=== PATIENT | male | born 1995 | race Caucasian/White ===

== ENCOUNTER 2016-06-10 17:50 | Inpatient (IN) | payer OTHER ==
[2016-06-10 20:41] VITALS: BMI 18.2
--- NOTE | 2016-06-10 21:17 | HP ---
COWS - Scale Resting Pulse: 0= [place] 80 or Below Sweatin= Chills/Flushing Restless Observation: 1= Difficult to Sit Still Pupil Size: 0= Normal to Room Light Bone or Joint Aches: 2= Severe Diffuse Aches Runny Nose/ Eye Tearin= Runny Nose/Eyes GI Upset > 30mins: 2= Nausea/Diarrhea Tremor Observation: 2= Slight Tremor Visible Yawning Observation: 1= 1-2x During Session Anxiety or Irritability: 2=Irritable/Anxious Goose Flesh Skin: 3=Piloerection COWS Score: 16 CIWA Score - CIWA Score Nausea/Vomitin-Mild Nausea/No Vomiting Muscle Tremors: 4-Moderate,w/Arms Extend Anxiety: 4-Mod. Anxious/Guarded Agitation: 1-Slight > Activity Paroxysmal Sweats: 1-Minimal Palms Moist Orientation: 3-Disoriented Date>2 days Tacttile Disturbances: 0-None Auditory Disturbances: 0-None Visual Disturbances: 0-None Headache: 2-Mild CIWA-Ar Total Score: 16 Admission [facility] - HPI Chief Complaint: WITHDRAWAL SX Allergies/Adverse Reactions: Allergies Allergy/AdvReac Type Severity Reaction Status Date / Time No Known Allergies Allergy Verified 06/10/16 21:20 History of Present Illness: 21 YEARS OLD MALE WITH LONG HISTORY OF OPIOID XANAX NICOTINE DEPENDENCE HAS HEPATITIS C AND DEPRESSION IS ADMITTED TO DETOX Exam Limitations: No Limitations - Ebola screening Have you traveled outside of the country in the last 21 days: No Have you had contact with anyone from an Ebola affected area: No Have you been sick,other than usual withdrawal symptoms: No Do you have a fever: No - Review of Systems Constitutional: Chills, Loss of Appetite, Changes in sleep, Unintentional Wgt. Loss, Unexplained wgt Loss EENT: reports: No Symptoms Reported Respiratory: reports: SOB with Exertion Cardiac: reports: No Symptoms Reported GI: reports: Diarrhea, Nausea, Poor Appetite, Poor Fluid Intake, Vomiting, Indigestion, Abdominal cramping : reports: No Symptoms Reported Musculoskeletal: reports: Back Pain, Joint Pain, Muscle Pain, Neck Pain Integumentary: reports: Change in Color Neuro: reports: Tremors Endocrine: reports: No Symptoms Reported Hematology: reports: No Symptoms Reported Psychiatric: reports: Judgement Intact, Depressed Other Systems: Reviewed and Negative Patient History - Patient Medical History Hx Anemia: No Hx Asthma: No Hx Chronic Obstructive Pulmonary Disease (COPD): No Hx Cancer: No Hx Cardiac Disorders: No Hx Congestive Heart Failure: No Hx Hypertension: No Hx Hypercholesterolemia: No Hx Pacemaker: No HX Cerebrovascular Accident: No Hx Seizures: No Hx Dementia: No Hx Diabetes: No Hx Gastrointestinal Disorders: No Hx Liver Disease: No Hx Genitourinary Disorders: No Hx Sexually Transmitted Disorders: No Hx Renal Disease (ESRD): No Hx Thyroid Disease: No Hx Human Immunodeficiency Virus (HIV): No Hx Hepatitis C: Yes Hx Depression: Yes Hx Suicide Attempt: No Hx Bipolar Disorder: No Hx Schizophrenia: No - Patient Surgical History Past Surgical History: No - PPD History Previous Implant?: Yes Documented Results: Negative w/o proof Implanted On Prior [facility] Admission?: No PPD to be Administered?: Yes - Smoking Cessation Smoking history: Current every day smoker Have you smoked in the past 12 months: Yes Aproximately how many cigarettes per day: 10 Cigars Per Day: 0 Hx Chewing Tobacco Use: No Initiated information on smoking cessation: Yes 'Breaking Loose' booklet given: 06/10/16 - Substance & Tx. History Hx Alcohol Use: No Hx Substance Use: Yes Substance Use Type: Opiates, Tranquilizers Hx Substance Use Treatment: Yes - Substances Abused Alprazolam (Xanax) Route: Oral Frequency: Daily Amount used: 10 MG Age of first use: 18 Date of Last Use: 06/08/16 Heroin Route: Injection Frequency: Daily Amount used: 10 BAGS Age of first use: 19 Date of Last Use: 06/09/16 Family Disease History - Family Disease History Family History: Unremarkable Admission Physical Exam S - Vital Signs Vital Signs: Vital Signs - 24 hr 06/10/16 20:38 Temperature 97.0 F L Pulse Rate 72 Respiratory 18 Rate Blood Pressure 118/83 - Physical General Appearance: Yes: Appropriately Dressed, Mild Distress, Thin, Tremorous, Irritable, Sweating, Anxious HEENTM: Yes: Hearing grossly Normal, Normal ENT Inspection, Normocephalic, Normal Voice Respiratory: Yes: Chest Non-Tender, Lungs Clear, Normal Breath Sounds, No Respiratory Distress, No Accessory Muscle Use Neck: Yes: Supple, Trachea in good position Breast: Yes: Breasts Symetrical Cardiology: Yes: Regular Rhythm, Regular Rate, S1, S2 Abdominal: Yes: Non Tender, Soft Genitourinary: Yes: Within Normal Limits Back: Yes: Normal Inspection Musculoskeletal: Yes: full range of Motion, Gait Steady, Back pain, Muscle Pain Extremities: Yes: Normal Range of Motion, Non-Tender, Tremors Neurological: Yes: Alert, Motor Strength 5/5, Normal Response, Depressed Affect Integumentary: Yes: Warm, Track Hassan Lymphatic: Yes: Within Normal Limits - Diagnostic (1) Sedative, hypnotic or anxiolytic dependence with withdrawal, uncomplicated Current Visit: Yes Status: Acute (2) Opioid dependence with withdrawal Current Visit: Yes Status: Acute (3) Nicotine dependence Current Visit: Yes Status: Acute Qualifiers: Nicotine product type: cigarettes Substance use status: in withdrawal Qualified Code(s): F17.213 - Nicotine dependence, cigarettes, with withdrawal (4) Hepatitis C antibody test positive Current Visit: Yes Status: Resolved (5) Weight loss Current Visit: Yes Status: Acute (6) GERD (gastroesophageal reflux disease) Current Visit: Yes Status: Chronic Qualifiers: Esophagitis presence: without esophagitis Qualified Code(s): K21.9 - Gastro-esophageal reflux disease without esophagitis (7) Vomiting and diarrhea Current Visit: Yes Status: Acute Comment: OPIOID WITHDRAWAL RELATED (8) Depression (emotion) Current Visit: Yes Status: Suspected Qualifiers: Depression Type: dysthymia Qualified Code(s): F34.1 - Dysthymic disorder Cleared for Admission [facility] - Detox or Rehab [facility] Level of Care: Medically Managed Detox Regimen/Protocol: Methadone/Valium S Breath Alcohol Content Breath Alcohol Content: 0 Urine Drug Screen - Control Is Test Valid: Yes - Results Drug Screen Negative: No Urine Drug Screen Results: OPI-Opiates, BZO-Benzodiazepines
[2016-06-10] MEDS ORDERED: MAG HYDROX/AL HYDROX/SIMETH 30 ML UNIT-DOSE CUP PO PRN (21:26)
[2016-06-10] MEDS ORDERED: diazePAM 5 MG TABLET PO ONE (21:26)
[2016-06-10] MEDS ORDERED: P-EPHED 60MG/TRIPROLIDI 2.5MG TABLET PO PRN (21:26)
[2016-06-10] MEDS ORDERED: MENTHOL/PHENOL 1 EACH UD MM PRN (21:26)
[2016-06-10] MEDS ORDERED: NICOTINE POLACRILEX 2 MG GUM BC PRN (21:26)
[2016-06-10] MEDS ORDERED: METHADONE HCL 10 MG TABLET (FOR DETOX USE ONLY) PO ONE ×2 (21:26→23:00)
[2016-06-10] MEDS ORDERED: MAGNESIUM CITRATE 300 ML BOTTLE PO PRN (21:26)
[2016-06-10] MEDS ORDERED: LOPERAMIDE HCL 2 MG CAPSULE PO PRN (21:26)
[2016-06-10] MEDS ORDERED: MAGNESIUM HYDROX 2400MG/30ML ORAL SUSPENSION 30 ML CUP PO PRN (21:26)
[2016-06-10] MEDS ORDERED: guaiFENesin/D-METHORPHAN HB 10 ML UNIT-DOSE CUPS PO PRN (21:26)
[2016-06-10] MEDS ORDERED: diphenhydrAMINE HCL 50 MG CAPSULE PO PRN (21:26)
[2016-06-10] MEDS ORDERED: ONDANSETRON *ODT* 4 MG TABLET SL ONE (21:31)
[2016-06-11] MEDS ORDERED: METHADONE HCL 10 MG TABLET (FOR DETOX USE ONLY) PO ONE ×3 (00:29→23:00)
[2016-06-11] MEDS: diazePAM 5 MG TABLET PO SCH ×5 (00:36→22:31)
[2016-06-11] MEDS: THIAMINE HCL 100 MG TABLET (FP) PO SCH ×2 (00:36→22:42)
[2016-06-11] MEDS: RANITIDINE HCL 150 MG TABLET (FP) PO SCH ×3 (01:03→22:31)
[2016-06-11 09:57] LABS: URINE APPEARANCE CLEAR; URINE BILIRUBIN NEGATIVE (NEGATIVE); URINE BLOOD NEGATIVE (NEGATIVE); URINE COLOR YELLOW; URINE GLUCOSE (UA) NEGATIVE (NEGATIVE); URINE KETONE NEGATIVE (NEGATIVE); URINE LEUK ESTERASE NEGATIVE (NEGATIVE); URINE NITRITE NEGATIVE (NEGATIVE); URINE PROTEIN NEGATIVE (NEGATIVE); URINE UROBILINOGEN NEGATIVE E.U./dl (0.2-1.0)
[2016-06-11] MEDS ORDERED: METHADONE HCL 10 MG TABLET (FOR DETOX USE ONLY) PO SCH (10:00)
[2016-06-11 10:06] LABS: MCH 30.6 pg (25.7-33.7); MEAN PLT VOLUME 9.1 fl (7.5-11.1); PLATELET COUNT 193 K/MM3 (134-434); RDW 14.1 % (11.9-15.9); WHITE BLOOD COUNT 6.7 K/mm3 (4.0-10.0)
[2016-06-11 10:20] LABS: ALBUMIN 3.8 g/dl (3.4-5.0); ALK PHOS 114 U/L (45-117); ANION GAP 13 (8-16); BILIRUBIN,TOTAL 0.8 mg/dL (0.2-1.0); CALCIUM 8.7 mg/dL (8.5-10.1); CO2 25 mmol/L (21-32); COCKROFT - GAULT 106.77; CREATININE 1.1 mg/dL (0.7-1.3); GLUCOSE,RANDOM 203 mg/dL (74-106); SGOT/AST 97 U/L (15-37); SGPT/ALT 195 U/L (12-78); TOT PROT 6.9 g/dl (6.4-8.2)
[2016-06-11] MEDS: NICOTINE 14 MG/24 HOURS TOPICAL PATCH TD SCH (10:46)
[2016-06-11] MEDS: PRENATAL VITAMINS W/ FOLIC ACID TABLET (FP) PO SCH (10:46)
--- NOTE | 2016-06-11 10:59 | PN ---
[facility] CIWA - CIWA Score Nausea/Vomitin-Mild Nausea/No Vomiting Muscle Tremors: 4-Moderate,w/Arms Extend Anxiety: 3 Agitation: 3 Paroxysmal Sweats: 3 Orientation: 0-Oriented Tacttile Disturbances: 0-None Auditory Disturbances: 0-None Visual Disturbances: 0-None Headache: 0-None Present CIWA-Ar Total Score: 14 [facility] COWS - Scale Resting Pulse: 1= [place] 81-100 Sweatin=Flushed/Facial Moisture Restless Observation: 1= Difficult to Sit Still Pupil Size: 0= Normal to Room Light Bone or Joint Aches: 2= Severe Diffuse Aches Runny Nose/ Eye Tearin= Runny Nose/Eyes GI Upset > 30mins: 2= Nausea/Diarrhea Tremor Observation of Outstretched Hands: 2= Slight Tremor Visible Yawning Observation: 1= 1-2x During Session Anxiety or Irritability: 2=Irritable/Anxious Goose Flesh Skin: 0=Smooth Skin COWS Score: 15 [facility] Progress Note (SOAP) Subjective: Anxiety,tremors,sweating,interrupted sleep,restless,body aches Objective: 06/11/16 10:58 Vital Signs - 8 hr 06/11/16 06/11/16 06/11/16 03:26 06:13 09:41 Temperature 97.2 F L 97.3 F L Pulse Rate 85 89 Respiratory 18 18 18 Rate Blood Pressure 109/73 126/77 Laboratory Last Values WBC 6.7 K/mm3 (4.0-10.0) 06/11/16 07:00 RBC 4.53 M/mm3 (4.00-5.60) 06/11/16 07:00 Hgb 13.9 GM/dL (11.7-16.9) 06/11/16 07:00 Hct 40.8 % (35.4-49) 06/11/16 07:00 MCV 90.0 fl (80-96) 06/11/16 07:00 MCHC 34.0 g/dl (32.0-35.9) 06/11/16 07:00 RDW 14.1 % (11.9-15.9) 06/11/16 07:00 Plt Count 193 K/MM3 (134-434) 06/11/16 07:00 MPV 9.1 fl (7.5-11.1) 06/11/16 07:00 Sodium 138 mmol/L (136-145) 06/11/16 07:00 Potassium 3.7 mmol/L (3.5-5.1) 06/11/16 07:00 Chloride 100 mmol/L (98-107) 06/11/16 07:00 Carbon Dioxide 25 mmol/L (21-32) 06/11/16 07:00 Anion Gap 13 (8-16) 06/11/16 07:00 BUN 10 mg/dL (7-18) 06/11/16 07:00 Creatinine 1.1 mg/dL (0.7-1.3) 06/11/16 07:00 Creat Clearance w eGFR > 60 (>60) 06/11/16 07:00 Random Glucose 203 mg/dL (74-106) H 06/11/16 07:00 Calcium 8.7 mg/dL (8.5-10.1) 06/11/16 07:00 Total Bilirubin 0.8 mg/dL (0.2-1.0) 06/11/16 07:00 AST 97 U/L (15-37) H 06/11/16 07:00 ALT 195 U/L (12-78) H 06/11/16 07:00 Alkaline Phosphatase 114 U/L (45-117) 06/11/16 07:00 Total Protein 6.9 g/dl (6.4-8.2) 06/11/16 07:00 Albumin 3.8 g/dl (3.4-5.0) 06/11/16 07:00 Urine Color Yellow 06/11/16 07:00 Urine Appearance Clear 06/11/16 07:00 Urine pH 7.0 (5.0-8.0) 06/11/16 07:00 Ur Specific [place] 1.012 (1.001-1.035) 06/11/16 07:00 Urine Protein Negative (NEGATIVE) 06/11/16 07:00 Urine Glucose (UA) Negative (NEGATIVE) 06/11/16 07:00 Urine Ketones Negative (NEGATIVE) 06/11/16 07:00 Urine Blood Negative (NEGATIVE) 06/11/16 07:00 Urine Nitrite Negative (NEGATIVE) 06/11/16 07:00 Urine Bilirubin Negative (NEGATIVE) 06/11/16 07:00 Urine Urobilinogen Negative E.U./dl (0.2-1.0) 06/11/16 07:00 Ur Leukocyte Esterase Negative (NEGATIVE) 06/11/16 07:00 labs noted Assessment: 06/11/16 10:58 Withdrawal sx. Plan: Continue detox
--- NOTE | 2016-06-11 13:57 | CONSULT ---
[facility] Psychiatric Consult - Data Date of interview: 06/11/16 Admission source: [facility] Identifying data: First admission to [facility] for this 21 y/o male seeking detox treatment,on ,for heroin,xanax and cocaine (crack) dependence.Patient is single without children,homeless,unemployed and reportedly deprived of any financial support. Substance Abuse History: - Smoking Cessation. Smoking history: Current every day smoker. Have you smoked in the past 12 months: Yes. Aproximately how many cigarettes per day: 10. Cigars Per Day: 0. Hx Chewing Tobacco Use: No. Initiated information on smoking cessation: Yes. 'Breaking Loose' booklet given : 06/10/16. - Substance & Tx. History. Hx Alcohol Use: No. Hx Substance Use: Yes. Substance Use Type: Opiates, Tranquilizers. Hx Substance Use Treatment: Yes. - Substances Abused. Alprazolam (Xanax). Route: Oral. Frequency: Daily. Amount used: 10 MG. Age of first use: 18. Date of Last Use: 06/08/16. Heroin. Route: Injection. Frequency: Daily. Amount used: 10 BAGS. Age of first use: 19. Date of Last Use: 06/09/16. Confirmed by patient. Medical History: Hepatitis C and GERD.History of alcohol syndrome. Psychiatric History: One psychiatric hospitalization at [facility] in 2016.History of overdose with xanax but the patient claims that it was " accidental ".Mr Awad endorses the diagnosis of Anxiety Disorder.No OPD care.Not on medications. Physical/Sexual Abuse/Trauma History: Patient denies. Additional Comment: Urine Drug Screen Results: OPI-Opiates, BZO- Benzodiazepines.Noted. Mental Status Exam - Mental Status Exam Alert and Oriented to: Time, Place, Person Cognitive Function: Good Patient Appearance: Unkempt, Disheveled (tall frame) Mood: Hopeful, Euthymic Affect: Normal Range Patient Behavior: Appropriate, Cooperative Speech Pattern: Clear Voice Loudness: Normal Thought Process: Goal Oriented Thought Disorder: Not Present Hallucinations: Denies Suicidal Ideation: Denies Homicidal Ideation: Denies Insight/Judgement: Poor Sleep: Poorly, Difficulty falling asleep (wants remeron) Appetite: Good Muscle strength/Tone: Normal Gait/Station: Normal Psychiatric Findings - Problem List ([place] 1, 2,3) (1) Opioid dependence with withdrawal Current Visit: Yes Status: Acute (2) Sedative, hypnotic or anxiolytic dependence with withdrawal, uncomplicated Current Visit: Yes Status: Acute (3) Nicotine dependence Current Visit: Yes Status: Acute Qualifiers: Nicotine product type: cigarettes Substance use status: in withdrawal Qualified Code(s): F17.213 - Nicotine dependence, cigarettes, with withdrawal (4) Substance induced mood disorder Current Visit: Yes Status: Acute (5) GERD (gastroesophageal reflux disease) Current Visit: Yes Status: Chronic Qualifiers: Esophagitis presence: without esophagitis Qualified Code(s): K21.9 - Gastro-esophageal reflux disease without esophagitis (6) Hepatitis C antibody test positive Current Visit: Yes Status: Chronic - Initial Treatment Plan Initial Treatment Plan: Psychoeducation.Detoxification.Remeron 15 mg po hs.Side effects/benefits discussed with the patient.He agrees with this careplan.Observation.
[2016-06-11] MEDS: ACETAMINOPHEN 325 MG TABLET (FP) PO PRN ×2 (14:12→22:32)
[2016-06-11] MEDS: diazePAM 5 MG TABLET PO PRN (20:03)
[2016-06-11] MEDS: MIRTAZAPINE 15 MG TABLET (FP) PO SCH (22:31)
--- NOTE | 2016-06-11 23:06 | EKG ---
Test Reason : Blood Pressure : / mmHG Vent. Rate : 077 BPM Atrial Rate : 077 BPM P-R Int : 160 ms QRS Dur : 104 ms QT Int : 400 ms P-R-T Axes : 043 088 058 degrees QTc Int : 452 ms NORMAL SINUS RHYTHM NORMAL ECG WHEN COMPARED WITH ECG OF 11-JUN-2016 00:10, VENT. RATE HAS INCREASED BY 26 BPM Confirmed by COLT GREEN MD ([id number]) on 06/11/2016 11:06:34 PM Referred By: Confirmed By:COLT GRENE MD
--- NOTE | 2016-06-11 23:07 | EKG ---
Test Reason : Blood Pressure : / mmHG Vent. Rate : 051 BPM Atrial Rate : 051 BPM P-R Int : 000 ms QRS Dur : 112 ms QT Int : 452 ms P-R-T Axes : 000 088 068 degrees QTc Int : 416 ms SINUS BRADYCARDIA WITH 1ST DEGREE A-V BLOCK OTHERWISE NORMAL ECG NO PREVIOUS ECGS AVAILABLE Confirmed by PETER VILLANUEVA, COLT ([id number]) on 06/11/2016 11:06:53 PM Referred By: Confirmed By:COLT GREEN MD
[2016-06-12] MEDS: diazePAM 5 MG TABLET PO PRN ×3 (06:01→20:32)
[2016-06-12] MEDS ORDERED: METHADONE HCL 5 MG TABLET (FOR DETOX USE ONLY) PO SCH (10:00)
[2016-06-12] MEDS ORDERED: METHADONE HCL 10 MG TABLET (FOR DETOX USE ONLY) PO ONE (10:00)
[2016-06-12] MEDS: PRENATAL VITAMINS W/ FOLIC ACID TABLET (FP) PO SCH (10:40)
[2016-06-12] MEDS: ACETAMINOPHEN 325 MG TABLET (FP) PO PRN ×2 (10:40→20:33)
[2016-06-12] MEDS: RANITIDINE HCL 150 MG TABLET (FP) PO SCH ×2 (10:40→22:24)
[2016-06-12] MEDS: diazePAM 5 MG TABLET PO SCH ×2 (10:40→22:23)
[2016-06-12] MEDS: NICOTINE 14 MG/24 HOURS TOPICAL PATCH TD SCH (10:43)
--- NOTE | 2016-06-12 15:26 | PN ---
[facility] CIWA - CIWA Score Nausea/Vomitin-No Nausea/No Vomiting Muscle Tremors: 3 Anxiety: 4-Mod. Anxious/Guarded Agitation: 3 Paroxysmal Sweats: 3 Orientation: 0-Oriented Tacttile Disturbances: 0-None Auditory Disturbances: 0-None Visual Disturbances: 0-None Headache: 0-None Present CIWA-Ar Total Score: 13 [facility] COWS - Scale Resting Pulse: 1= [place] 81-100 Sweatin=Flushed/Facial Moisture Restless Observation: 1= Difficult to Sit Still Pupil Size: 0= Normal to Room Light Bone or Joint Aches: 2= Severe Diffuse Aches Runny Nose/ Eye Tearin= Runny Nose/Eyes GI Upset > 30mins: 2= Nausea/Diarrhea Tremor Observation of Outstretched Hands: 2= Slight Tremor Visible Yawning Observation: 1= 1-2x During Session Anxiety or Irritability: 2=Irritable/Anxious Goose Flesh Skin: 0=Smooth Skin COWS Score: 15 S Progress Note (SOAP) Subjective: Anxiety,tremors,sweating,interrupted sleep,restless,body aches Objective: 06/12/16 15:25 Last Vital Signs Temp Pulse Resp BP Pulse Ox 96.8 F L 90 20 108/62 06/12/16 13:29 06/12/16 13:29 06/12/16 13:29 06/12/16 13:29 Laboratory Tests 06/11/16 06/11/16 06/11/16 07:00 07:00 07:00 WBC 6.7 RBC 4.53 Hgb 13.9 Hct 40.8 MCV 90.0 MCHC 34.0 RDW 14.1 Plt Count 193 MPV 9.1 Sodium 138 Potassium 3.7 Chloride 100 Carbon Dioxide 25 Anion Gap 13 BUN 10 Creatinine 1.1 Creat Clearance w eGFR > 60 Random Glucose 203 H Calcium 8.7 Total Bilirubin 0.8 AST 97 H ALT 195 H Alkaline Phosphatase 114 Total Protein 6.9 Albumin 3.8 Urine Color Urine Appearance Urine pH Ur Specific [place] Urine Protein Urine Glucose (UA) Urine Ketones Urine Blood Urine Nitrite Urine Bilirubin Urine Urobilinogen Ur Leukocyte Esterase RPR Titer Nonreactive 06/11/16 07:00 WBC RBC Hgb Hct MCV MCHC RDW Plt Count MPV Sodium Potassium Chloride Carbon Dioxide Anion Gap BUN Creatinine Creat Clearance w eGFR Random Glucose Calcium Total Bilirubin AST ALT Alkaline Phosphatase Total Protein Albumin Urine Color Yellow Urine Appearance Clear Urine pH 7.0 Ur Specific [place] 1.012 Urine Protein Negative Urine Glucose (UA) Negative Urine Ketones Negative Urine Blood Negative Urine Nitrite Negative Urine Bilirubin Negative Urine Urobilinogen Negative Ur Leukocyte Esterase Negative RPR Titer labs noted Assessment: 06/12/16 15:25 Withdrawal sx. Plan: Continue detox
[2016-06-12] MEDS: THIAMINE HCL 100 MG TABLET (FP) PO SCH (22:24)
[2016-06-12] MEDS: MIRTAZAPINE 15 MG TABLET (FP) PO SCH (22:24)
[2016-06-13] MEDS: diazePAM 5 MG TABLET PO PRN ×3 (05:59→18:29)
[2016-06-13] MEDS ORDERED: METHADONE HCL 5 MG TABLET (FOR DETOX USE ONLY) PO ONE (10:00)
--- NOTE | 2016-06-13 10:39 | PN ---
[facility] Progress Note (SOAP) Subjective: Sweating,interrupted sleep,restless Objective: 06/13/16 10:38 Vital Signs - 8 hr 06/13/16 06/13/16 06/13/16 03:25 06:21 09:29 Temperature 95.3 F L 98.1 F Pulse Rate 75 87 Respiratory 18 16 18 Rate Blood Pressure 95/63 112/69 Laboratory Tests 06/11/16 06/11/16 06/11/16 07:00 07:00 07:00 WBC 6.7 RBC 4.53 Hgb 13.9 Hct 40.8 MCV 90.0 MCHC 34.0 RDW 14.1 Plt Count 193 MPV 9.1 Sodium 138 Potassium 3.7 Chloride 100 Carbon Dioxide 25 Anion Gap 13 BUN 10 Creatinine 1.1 Creat Clearance w eGFR > 60 Random Glucose 203 H Calcium 8.7 Total Bilirubin 0.8 AST 97 H ALT 195 H Alkaline Phosphatase 114 Total Protein 6.9 Albumin 3.8 Urine Color Urine Appearance Urine pH Ur Specific [place] Urine Protein Urine Glucose (UA) Urine Ketones Urine Blood Urine Nitrite Urine Bilirubin Urine Urobilinogen Ur Leukocyte Esterase RPR Titer Nonreactive 06/11/16 07:00 WBC RBC Hgb Hct MCV MCHC RDW Plt Count MPV Sodium Potassium Chloride Carbon Dioxide Anion Gap BUN Creatinine Creat Clearance w eGFR Random Glucose Calcium Total Bilirubin AST ALT Alkaline Phosphatase Total Protein Albumin Urine Color Yellow Urine Appearance Clear Urine pH 7.0 Ur Specific [place] 1.012 Urine Protein Negative Urine Glucose (UA) Negative Urine Ketones Negative Urine Blood Negative Urine Nitrite Negative Urine Bilirubin Negative Urine Urobilinogen Negative Ur Leukocyte Esterase Negative RPR Titer labs noted Assessment: 06/13/16 10:39 Withdrawal sx. Plan: Continue detox
[2016-06-13] MEDS: PRENATAL VITAMINS W/ FOLIC ACID TABLET (FP) PO SCH (10:43)
[2016-06-13] MEDS: diazePAM 5 MG TABLET PO SCH ×2 (10:43→22:22)
[2016-06-13] MEDS: RANITIDINE HCL 150 MG TABLET (FP) PO SCH ×2 (10:43→22:23)
[2016-06-13] MEDS: NICOTINE 14 MG/24 HOURS TOPICAL PATCH TD SCH (10:44)
[2016-06-13] MEDS: BACITRACIN 0.9 GM PACKET TP SCH ×2 (12:06→22:22)
[2016-06-13] MEDS ORDERED: HALOPERIDOL 2 MG TABLET PO STA (14:53)
[2016-06-13] MEDS ORDERED: diphenhydrAMINE HCL 50 MG CAPSULE PO STA (14:54)
[2016-06-13] MEDS ORDERED: diphenhydrAMINE HCL 25 MG CAPSULE (FP) PO ONE (15:01)
--- NOTE | 2016-06-13 15:03 | PN ---
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, irritable and restless, not following directions, asking for antidepression medications Current Medications: Active Medications Generic Name Dose Route Start Last Admin Trade Name Freq PRN Reason Stop Dose Admin Acetaminophen 650 mg 06/10/16 21:26 06/12/16 20:33 Tylenol - PO 650 mg Q4H PRN Administration FEVER OR PAIN Al Hydroxide/Mg Hydroxide 30 ml 06/10/16 21:26 Mylanta Oral Suspension - PO Q6H PRN DYSPEPSIA Bacitracin 0.9 gm 06/13/16 10:45 06/13/16 12:06 Bacitracin - TP Not Given BID DEBI Diazepam 10 mg 06/10/16 21:26 06/13/16 05:59 Valium - PO 06/13/16 21:26 10 mg Q4H PRN Administration WITHDRAWAL(CONT SUBST) Diazepam 5 mg 06/12/16 10:00 06/13/16 10:43 Valium - PO 06/13/16 22:01 5 mg BID DEBI Administration Diazepam 5 mg 06/14/16 10:00 Valium - PO 06/14/16 10:01 DAILY DEBI Diazepam 10 mg 06/11/16 00:29 06/13/16 14:07 Valium - PO 06/14/16 00:28 10 mg Q4H PRN Administration WITHDRAWAL(CONT SUBST) Diphenhydramine HCl 50 mg 06/10/16 21:26 06/11/16 01:03 Benadryl - PO 50 mg HSMR1 PRN Administration INSOMNIA Duloxetine HCl 20 mg 06/13/16 15:00 Cymbalta - PO DAILY DEBI Eucalyptus/Menthol/Phenol/Sorbitol 1 each 06/10/16 21:26 06/11/16 17:34 Cepastat Lozenge - MM 1 each Q4H PRN Administration SORE THROAT Guaifenesin 10 ml 06/10/16 21:26 Robitussin Dm - PO Q6H PRN COUGH Haloperidol 1 mg 06/13/16 14:56 Haldol - PO Q4HWA PRN AGITATION Loperamide HCl 4 mg 06/10/16 21:26 Imodium - PO Q6H PRN DIARRHEA Magnesium Citrate 300 ml 06/10/16 21:26 Citroma - PO Q48H PRN CONSTIPATION Magnesium Hydroxide 30 ml 06/10/16 21:26 Milk Of Magnesia - PO DAILY PRN CONSTIPATION Methadone HCl 10 mg 06/15/16 10:00 Dolophine - PO 06/15/16 10:01 ONCE ONE Methadone HCl 15 mg 06/14/16 10:00 Dolophine - PO 06/14/16 10:01 ONCE ONE Methadone HCl 5 mg 06/16/16 06:00 Dolophine - PO 06/16/16 06:01 ONCE@0600 ONE Mirtazapine 15 mg 06/11/16 22:00 06/12/16 22:24 Remeron - PO 15 mg HS DEBI Administration Nicotine 14 mg 06/11/16 10:00 06/13/16 10:44 Nicoderm Patch - TD Not Given DAILY DEBI Nicotine Polacrilex 2 mg 06/10/16 21:26 Nicorette Gum - BC Q2H PRN NICOTINE REPLACEMENT RX Multivit/Folic Acid/Iron 1 tab 06/11/16 10:00 06/13/16 10:43 Vitamins ([facility]) - PO 1 tab DAILY DEBI Administration Pseudoephedrine/Triprolidine 1 combo 06/10/16 21:26 Actifed - PO TID PRN NASAL CONGESTION Ranitidine HCl 150 mg 06/10/16 22:00 06/13/16 10:43 Zantac - PO 150 mg BID DEBI Administration Thiamine HCl 100 mg 06/10/16 22:00 06/12/16 22:24 Vitamin B1 - PO 100 mg HS DEBI Administration Medication(s) Change(s): Cymbalta 20g poqd. Haldol 1mg prn po q4 for agitation. Haldol 2mg stat. BenaDRYL 50mf po stat Mental Status Exam - Mental Status Exam Alert and Oriented to: Person Cognitive Function: Fair Patient Appearance: Unkempt Mood: Nervous, Anxious, Expansive, Irritable Affect: Labile Patient Behavior: Restless, Uncooperative, Guarded, Suspicious, Impulsive, Talkative, Agitated Speech Pattern: Excessive, Pressured Voice Loudness: Moderately Loud Thought Process: Circumstantial Thought Disorder: Being Controlled Hallucinations: Denies Suicidal Ideation: Denies Homicidal Ideation: Denies Insight/Judgement: Fair Sleep: Difficulty falling asleep Appetite: Weight loss Muscle strength/Tone: Normal, Mild Hypertonicity Gait/Station: Normal Additional Comments: Cymbalta 20g poqd. Haldol 1mg prn po q4 for agitation. Haldol 2mg stat. 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 Haldol 1mg prn po q4 for agitation. Haldol 2mg PO stat. BenaDRYL 50mG po stat
[2016-06-13] MEDS: DULoxetine HCL 20 MG CAPSULE.DR (FP) PO SCH (15:16)
[2016-06-13] MEDS: MIRTAZAPINE 15 MG TABLET (FP) PO SCH (22:22)
[2016-06-13] MEDS: THIAMINE HCL 100 MG TABLET (FP) PO SCH (22:23)
[2016-06-13] MEDS: HALOPERIDOL 1 MG TABLET (FP) PO PRN (22:25)
[2016-06-14] MEDS ORDERED: METHADONE HCL 5 MG TABLET (FOR DETOX USE ONLY) PO ONE (10:00)
[2016-06-14] MEDS ORDERED: diazePAM 5 MG TABLET PO SCH (10:00)
[2016-06-14] MEDS ORDERED: METHADONE HCL 10 MG TABLET (FOR DETOX USE ONLY) PO SCH (10:00)
[2016-06-14] MEDS: RANITIDINE HCL 150 MG TABLET (FP) PO SCH ×2 (10:51→22:37)
[2016-06-14] MEDS: BACITRACIN 0.9 GM PACKET TP SCH ×2 (10:52→22:37)
[2016-06-14] MEDS: PRENATAL VITAMINS W/ FOLIC ACID TABLET (FP) PO SCH (10:52)
[2016-06-14] MEDS: DULoxetine HCL 20 MG CAPSULE.DR (FP) PO SCH (10:53)
[2016-06-14] MEDS: NICOTINE 14 MG/24 HOURS TOPICAL PATCH TD SCH (10:54)
[2016-06-14] MEDS: HALOPERIDOL 1 MG TABLET (FP) PO PRN ×2 (10:54→17:29)
--- NOTE | 2016-06-14 12:36 | PN ---
S Progress Note (SOAP) Subjective: ANXIETY,IRRITABILITY,STOMACH ACHE. Objective: 06/14/16 12:35 Vital Signs Temperature 96.0 F L 06/14/16 10:34 Pulse Rate 72 06/14/16 10:34 Respiratory Rate 18 06/14/16 10:34 Blood Pressure 110/75 06/14/16 10:34 O2 Sat by Pulse Oximetry (%) Laboratory Last Values WBC 6.7 K/mm3 (4.0-10.0) 06/11/16 07:00 RBC 4.53 M/mm3 (4.00-5.60) 06/11/16 07:00 Hgb 13.9 GM/dL (11.7-16.9) 06/11/16 07:00 Hct 40.8 % (35.4-49) 06/11/16 07:00 MCV 90.0 fl (80-96) 06/11/16 07:00 MCHC 34.0 g/dl (32.0-35.9) 06/11/16 07:00 RDW 14.1 % (11.9-15.9) 06/11/16 07:00 Plt Count 193 K/MM3 (134-434) 06/11/16 07:00 MPV 9.1 fl (7.5-11.1) 06/11/16 07:00 Sodium 138 mmol/L (136-145) 06/11/16 07:00 Potassium 3.7 mmol/L (3.5-5.1) 06/11/16 07:00 Chloride 100 mmol/L (98-107) 06/11/16 07:00 Carbon Dioxide 25 mmol/L (21-32) 06/11/16 07:00 Anion Gap 13 (8-16) 06/11/16 07:00 BUN 10 mg/dL (7-18) 06/11/16 07:00 Creatinine 1.1 mg/dL (0.7-1.3) 06/11/16 07:00 Creat Clearance w eGFR > 60 (>60) 06/11/16 07:00 Random Glucose 203 mg/dL (74-106) H 06/11/16 07:00 Calcium 8.7 mg/dL (8.5-10.1) 06/11/16 07:00 Total Bilirubin 0.8 mg/dL (0.2-1.0) 06/11/16 07:00 AST 97 U/L (15-37) H 06/11/16 07:00 ALT 195 U/L (12-78) H 06/11/16 07:00 Alkaline Phosphatase 114 U/L (45-117) 06/11/16 07:00 Total Protein 6.9 g/dl (6.4-8.2) 06/11/16 07:00 Albumin 3.8 g/dl (3.4-5.0) 06/11/16 07:00 Urine Color Yellow 06/11/16 07:00 Urine Appearance Clear 06/11/16 07:00 Urine pH 7.0 (5.0-8.0) 06/11/16 07:00 Ur Specific [place] 1.012 (1.001-1.035) 06/11/16 07:00 Urine Protein Negative (NEGATIVE) 06/11/16 07:00 Urine Glucose (UA) Negative (NEGATIVE) 06/11/16 07:00 Urine Ketones Negative (NEGATIVE) 06/11/16 07:00 Urine Blood Negative (NEGATIVE) 06/11/16 07:00 Urine Nitrite Negative (NEGATIVE) 06/11/16 07:00 Urine Bilirubin Negative (NEGATIVE) 06/11/16 07:00 Urine Urobilinogen Negative E.U./dl (0.2-1.0) 06/11/16 07:00 Ur Leukocyte Esterase Negative (NEGATIVE) 06/11/16 07:00 RPR Titer Nonreactive (NONREACTIVE) 06/11/16 07:00 LAB NOTED RANDOM GLC 203 MG/DL Assessment: 06/14/16 12:35 WITHDRAWAL SX Plan: CONTINUE DETOX FBS MONITOR X 2 DAYS
[2016-06-14] MEDS: MIRTAZAPINE 15 MG TABLET (FP) PO SCH (22:37)
[2016-06-14] MEDS: THIAMINE HCL 100 MG TABLET (FP) PO SCH (22:37)
[2016-06-15] MEDS ORDERED: METHADONE HCL 5 MG TABLET (FOR DETOX USE ONLY) PO SCH (06:00)
[2016-06-15] MEDS: HALOPERIDOL 1 MG TABLET (FP) PO PRN ×3 (06:06→22:46)
[2016-06-15] MEDS ORDERED: METHADONE HCL 10 MG TABLET (FOR DETOX USE ONLY) PO ONE (10:00)
[2016-06-15] MEDS: NICOTINE 14 MG/24 HOURS TOPICAL PATCH TD SCH (10:11)
[2016-06-15] MEDS: PRENATAL VITAMINS W/ FOLIC ACID TABLET (FP) PO SCH (10:11)
[2016-06-15] MEDS: BACITRACIN 0.9 GM PACKET TP SCH ×2 (10:11→22:45)
[2016-06-15] MEDS: RANITIDINE HCL 150 MG TABLET (FP) PO SCH ×2 (10:11→22:45)
[2016-06-15] MEDS: DULoxetine HCL 20 MG CAPSULE.DR (FP) PO SCH (10:11)
--- NOTE | 2016-06-15 17:07 | PN ---
S Progress Note (SOAP) Subjective: Back Ache, Nausea, Stomach Cramping, Tremors, H/A, Body Aches, Sweating. Objective: PT. A & O X 3, OBSERVED AMBULATING ON UNIT. 06/15/16 17:05 Vital Signs Temperature 96.8 F L 06/15/16 10:58 Pulse Rate 66 06/15/16 10:58 Respiratory Rate 18 06/15/16 10:58 Blood Pressure 105/70 06/15/16 10:58 O2 Sat by Pulse Oximetry (%) Laboratory Last Values WBC 6.7 K/mm3 (4.0-10.0) 06/11/16 07:00 RBC 4.53 M/mm3 (4.00-5.60) 06/11/16 07:00 Hgb 13.9 GM/dL (11.7-16.9) 06/11/16 07:00 Hct 40.8 % (35.4-49) 06/11/16 07:00 MCV 90.0 fl (80-96) 06/11/16 07:00 MCHC 34.0 g/dl (32.0-35.9) 06/11/16 07:00 RDW 14.1 % (11.9-15.9) 06/11/16 07:00 Plt Count 193 K/MM3 (134-434) 06/11/16 07:00 MPV 9.1 fl (7.5-11.1) 06/11/16 07:00 Sodium 138 mmol/L (136-145) 06/11/16 07:00 Potassium 3.7 mmol/L (3.5-5.1) 06/11/16 07:00 Chloride 100 mmol/L (98-107) 06/11/16 07:00 Carbon Dioxide 25 mmol/L (21-32) 06/11/16 07:00 Anion Gap 13 (8-16) 06/11/16 07:00 BUN 10 mg/dL (7-18) 06/11/16 07:00 Creatinine 1.1 mg/dL (0.7-1.3) 06/11/16 07:00 Creat Clearance w eGFR > 60 (>60) 06/11/16 07:00 POC Glucometer 98 UNITS (()) 06/15/16 06:05 Random Glucose 203 mg/dL (74-106) H 06/11/16 07:00 Calcium 8.7 mg/dL (8.5-10.1) 06/11/16 07:00 Total Bilirubin 0.8 mg/dL (0.2-1.0) 06/11/16 07:00 AST 97 U/L (15-37) H 06/11/16 07:00 ALT 195 U/L (12-78) H 06/11/16 07:00 Alkaline Phosphatase 114 U/L (45-117) 06/11/16 07:00 Total Protein 6.9 g/dl (6.4-8.2) 06/11/16 07:00 Albumin 3.8 g/dl (3.4-5.0) 06/11/16 07:00 Urine Color Yellow 06/11/16 07:00 Urine Appearance Clear 06/11/16 07:00 Urine pH 7.0 (5.0-8.0) 06/11/16 07:00 Ur Specific [place] 1.012 (1.001-1.035) 06/11/16 07:00 Urine Protein Negative (NEGATIVE) 06/11/16 07:00 Urine Glucose (UA) Negative (NEGATIVE) 06/11/16 07:00 Urine Ketones Negative (NEGATIVE) 06/11/16 07:00 Urine Blood Negative (NEGATIVE) 06/11/16 07:00 Urine Nitrite Negative (NEGATIVE) 06/11/16 07:00 Urine Bilirubin Negative (NEGATIVE) 06/11/16 07:00 Urine Urobilinogen Negative E.U./dl (0.2-1.0) 06/11/16 07:00 Ur Leukocyte Esterase Negative (NEGATIVE) 06/11/16 07:00 RPR Titer Nonreactive (NONREACTIVE) 06/11/16 07:00 LABS NOTED. 06/15/16 17:06 Assessment: 06/15/16 17:06 WITHDRAWAL SYMPTOMS. Plan: CONTINUE DETOX. ADVISED PATIENT TO FOLLOW-UP WITH [facility] / REHAB MEDICAL PROVIDER AFTER DISCHARGE FROM DETOX FOR GENERAL MEDICAL ASSESSMENT AND FOR ABNORMAL ADMISSION LAB VALUES.
[2016-06-15] MEDS: THIAMINE HCL 100 MG TABLET (FP) PO SCH (22:45)
[2016-06-15] MEDS: MIRTAZAPINE 15 MG TABLET (FP) PO SCH (22:45)
[2016-06-15] MEDS: ACETAMINOPHEN 325 MG TABLET (FP) PO PRN (22:59)
[2016-06-16] MEDS ORDERED: METHADONE HCL 5 MG TABLET (FOR DETOX USE ONLY) PO ONE (06:00)
[2016-06-16 06:45] VITALS: TEMP 96.1
[2016-06-16 07:31] VITALS: BP 89/53; PULSE 56
--- NOTE | 2016-06-16 11:46 | DS ---
[facility] Detox Discharge Summary Admission Date: 06/10/16 Discharge Date: 06/16/16 - History Present History: Opioid Dependence, Sedative Dependence Pertinent Past History: Hepatitis C - Physical Exam Results Vital Signs: Vital Signs Temperature 96.1 F L 06/16/16 06:44 Pulse Rate 56 L 06/16/16 07:31 Respiratory Rate 16 06/16/16 06:44 Blood Pressure 89/53 06/16/16 07:31 O2 Sat by Pulse Oximetry (%) Pertinent Admission Physical Exam Findings: Withdrawal symptoms Laboratory Tests 06/11/16 06/11/16 06/11/16 07:00 07:00 07:00 WBC 6.7 RBC 4.53 Hgb 13.9 Hct 40.8 MCV 90.0 MCHC 34.0 RDW 14.1 Plt Count 193 MPV 9.1 Sodium 138 Potassium 3.7 Chloride 100 Carbon Dioxide 25 Anion Gap 13 BUN 10 Creatinine 1.1 Creat Clearance w eGFR > 60 POC Glucometer Random Glucose 203 H Calcium 8.7 Total Bilirubin 0.8 AST 97 H ALT 195 H Alkaline Phosphatase 114 Total Protein 6.9 Albumin 3.8 Urine Color Urine Appearance Urine pH Ur Specific [place] Urine Protein Urine Glucose (UA) Urine Ketones Urine Blood Urine Nitrite Urine Bilirubin Urine Urobilinogen Ur Leukocyte Esterase RPR Titer Nonreactive 06/11/16 06/15/16 06/16/16 07:00 06:05 07:41 WBC RBC Hgb Hct MCV MCHC RDW Plt Count MPV Sodium Potassium Chloride Carbon Dioxide Anion Gap BUN Creatinine Creat Clearance w eGFR POC Glucometer 98 101 Random Glucose Calcium Total Bilirubin AST ALT Alkaline Phosphatase Total Protein Albumin Urine Color Yellow Urine Appearance Clear Urine pH 7.0 Ur Specific [place] 1.012 Urine Protein Negative Urine Glucose (UA) Negative Urine Ketones Negative Urine Blood Negative Urine Nitrite Negative Urine Bilirubin Negative Urine Urobilinogen Negative Ur Leukocyte Esterase Negative RPR Titer Labs noted - Treatment Hospital Course: Detox Protocol Followed, Detoxed Safely, Responded well, Discharged Condition Good - Medication Discharge Medications: Ambulatory Orders NK [No Known Home Medication] 06/10/16 - Diagnosis (1) Nicotine dependence Current Visit: Yes Status: Chronic Qualifiers: Nicotine product type: cigarettes Substance use status: in withdrawal Qualified Code(s): F17.213 - Nicotine dependence, cigarettes, with withdrawal (2) Opioid dependence with withdrawal Current Visit: Yes Status: Acute (3) Sedative, hypnotic or anxiolytic dependence with withdrawal, uncomplicated Current Visit: Yes Status: Acute (4) Depression (emotion) Current Visit: Yes Status: Chronic Qualifiers: Depression Type: dysthymia Qualified Code(s): F34.1 - Dysthymic disorder (5) Hepatitis C antibody test positive Current Visit: Yes Status: Chronic - AMA Did Patient Leave Against Medical Advice: No
== END 2016-06-16 10:12 | disposition home or self-care (01) | DRG 773 ==
LOC: YASAS 17:50 → Y3N 23:42
PROVIDERS: ADMIT Internal Medicine; ATTEND Internal Medicine
PROC: HZ2ZZZZ Detoxification Services for Substance Abuse Treatment (ICD-10-PCS; principal; 2016-06-10)
DX: F11.23 Opioid dependence with withdrawal (principal); F11.288 Opioid dependence with other opioid-induced disorder; F13.230 Sedative, hypnotic or anxiolytic dependence with withdrawal, uncomplicated; F17.210 Nicotine dependence, cigarettes, uncomplicated; F34.1 Dysthymic disorder; F31.9 Bipolar disorder, unspecified; F90.9 Attention-deficit hyperactivity disorder, unspecified type; B18.2 Chronic viral hepatitis C; K21.9 Gastro-esophageal reflux disease without esophagitis; Z87.898 Personal history of other specified conditions
CPT/HCPCS: 36415; 80053; 81003; 85027; 86593; 93005; 93010

== ENCOUNTER 2019-07-21 22:16 | Inpatient (IN) | payer OTHER ==
--- NOTE | 2019-07-21 23:42 | HP ---
"COWS - Scale Resting Pulse: 2= ME 101-120 Sweatin=Flushed/Facial Moisture Restless Observation: 1= Difficult to Sit Still Pupil Size: 0= Normal to Room Light Bone or Joint Aches: 2= Severe Diffuse Aches Runny Nose/ Eye Tearin= Nasal Congestion GI Upset > 30mins: 3= Vomiting/Diarrhea Tremor Observation: 2= Slight Tremor Visible Yawning Observation: 0= None Anxiety or Irritability: 2=Irritable/Anxious Goose Flesh Skin: 0=Smooth Skin COWS Score: 15 CIWA Score - Admission Criteria OASAS Guidelines: Admission for Medically Managed Detox: Requires at least one of the followin. CIWA greater than 12 2. Seizures within the past 24 hours 3. Delirium tremens within the past 24 hours 4. Hallucinations within the past 24 hours 5. Acute intervention needed for co occurring medical disorder 6. Acute intervention needed for co occurring psychiatric disorder 7. Severe withdrawal that cannot be handled at a lower level of care (continued vomiting, continued diarrhea, abnormal vital signs) requiring intravenous medication and/or fluids 8. Admitting History and Physical - Smoking History Smoking history: Current every day smoker Have you smoked in the past 12 months: Yes Aproximately how many cigarettes per day: 10 - Alcohol/Substance Use Hx Alcohol Use: No Admission ROS S - HPI Chief Complaint: Heroin withdrawal symptoms Allergies/Adverse Reactions: Allergies Allergy/AdvReac Type Severity Reaction Status Date / Time No Known Allergies Allergy Verified 06/10/16 21:20 History of Present Illness: 24 years old male with 5 years of heroin dependence is seeking admission to detox. His last admission to [facility] was for the period 06/10/2016 - 06/16/2016 and he reports insignificant period of sobriety. He reports that he overdosed yesterday and was treated and released at [facility]. He started sniffing at age 19 and IVDU in 2016. His last admission was at [facility] in [place], [place] and he reports that that he relapsed a day after discharge in April,. He reports medical history of Hep. C (not treated ), GERD and psych. history of ADHD, Bipolar disorder, depression and mood disorder. He is noted with abrasions to bilaeral lower extremities. He reports that he fell a few weeks ago but was evaluated yesterday at the Hospital. He is unemployed and is a resident at [facility] in [place]. He ambulates with an unsteady gait secondary to an accidental fall in August 2017. He denies legal issues Confidential Drug Utilization Report Search Terms: essence pedroza, 1995 Search Date: 07/22/2019 00:58:29 AM The Drug Utilization Report below displays all of the controlled substance prescriptions, if any, that your patient has filled in the last twelve months. The information displayed on this report is compiled from pharmacy submissions to the Department, and accurately reflects the information as submitted by the pharmacies. This report was requested by: Fiordaliza Dixon | There are no results for the search terms that you entered. Exam Limitations: Physical Impairment - Ebola screening Have you traveled outside of the country in the last 21 days: No Have you had contact with anyone from an Ebola affected area: No Have you been sick,other than usual withdrawal symptoms: No Do you have a fever: No - Review of Systems Constitutional: Chills, Malaise EENT: reports: Nose Congestion Respiratory: reports: No Symptoms reported Cardiac: reports: No Symptoms Reported GI: reports: No Symptoms Reported, Diarrhea, Poor Appetite, Poor Fluid Intake, Vomiting, Abdominal cramping : reports: No Symptoms Reported Musculoskeletal: reports: Muscle Pain, Muscle Weakness Integumentary: reports: Dryness, Flushing Neuro: reports: Headache, Tremors Endocrine: reports: No Symptoms Reported Hematology: reports: No Symptoms Reported Psychiatric: reports: Mood/Affect Appropiate, Orientated x3, Anxious Other Systems: Reviewed and Negative Patient History - Patient Medical History Hx Anemia: No Hx Asthma: No Hx Chronic Obstructive Pulmonary Disease (COPD): No Hx Cancer: No Hx Cardiac Disorders: No Hx Congestive Heart Failure: No Hx Hypertension: No Hx Hypercholesterolemia: No Hx Pacemaker: No HX Cerebrovascular Accident: No Hx Seizures: No Hx Dementia: No Hx Diabetes: No Hx Gastrointestinal Disorders: No Hx Liver Disease: No Hx Genitourinary Disorders: No Hx Sexually Transmitted Disorders: No Hx Renal Disease (ESRD): No Hx Thyroid Disease: No Hx Human Immunodeficiency Virus (HIV): No Hx Hepatitis C: Yes (Not treated) Hx Depression: Yes Hx Suicide Attempt: No (Denies suicidal ideation at this time) Hx Bipolar Disorder: No Hx Schizophrenia: No - Patient Surgical History Past Surgical History: Yes Hx Neurologic Surgery: No Hx Cataract Extraction: No Hx Cardiac Surgery: No Hx Lung Surgery: No Hx Breast Surgery: No Hx Breast Biopsy: No Hx Abdominal Surgery: No Hx Appendectomy: No Hx Cholecystectomy: No Hx Genitourinary Surgery: No Hx Section: No Hx Orthopedic Surgery: Yes (Right femur ) Anesthesia Reaction: No - PPD History Previous Implant?: Yes Documented Results: Negative w/proof Implanted On Prior [facility] Admission?: Yes Date: 06/14/16 PPD to be Administered?: Yes - Reproductive History Patient is a Female of Child Bearing Age (11 -55 yrs old): No (Male) - Smoking Cessation Smoking history: Current every day smoker Have you smoked in the past 12 months: Yes Aproximately how many cigarettes per day: 20 Cigars Per Day: 0 Hx Chewing Tobacco Use: No Initiated information on smoking cessation: Yes 'Breaking Loose' booklet given: 07/21/19 - Substance & Tx. History Hx Alcohol Use: No Hx Substance Use: Yes Substance Use Type: Cocaine, Opiates Hx Substance Use Treatment: Yes ([facility] in [place], [place]) - Substances abused Heroin Substance route: Injection Frequency: Daily Amount used: 10 bags Age of first use: 19 Date of last use: 07/21/19 Cocaine Substance route: Injection Frequency: Daily Amount used: 1 bag Age of first use: 15 Date of last use: 07/21/19 Admission Physical Exam BHS - Physical General Appearance: Yes: Moderate Distress, Tremorous, Anxious HEENTM: Yes: Within Normal Limits Respiratory: Yes: Lungs Clear, Normal Breath Sounds, No Respiratory Distress Neck: Yes: Within Normal Limits Breast: Yes: Breast Exam Deferred Cardiology: Yes: Tachycardia Abdominal: Yes: Within Normal Limits Genitourinary: Yes: Within Normal Limits Back: Yes: Within Normal Limits Musculoskeletal: Yes: Muscle Pain, Other (right leg pain) Extremities: Yes: Tremors Neurological: Yes: Within Normal Limits Integumentary: Yes: Within Normal Limits - Diagnostic (1) ADHD (attention deficit hyperactivity disorder) Current Visit: Yes Status: Chronic Qualifiers: Attention deficit-hyperactivity disorder type: unspecified Qualified Code(s): F90.9 - Attention-deficit hyperactivity disorder, unspecified type (2) Bipolar disorder Current Visit: Yes Status: Chronic Qualifiers: Most recent bipolar episode type: most recent episode unspecified type (3) Opioid dependence with withdrawal Current Visit: Yes Status: Acute (4) Depression (emotion) Current Visit: Yes Status: Chronic Qualifiers: Depression Type: dysthymia Qualified Code(s): F34.1 - Dysthymic disorder (5) GERD (gastroesophageal reflux disease) Current Visit: Yes Status: Chronic Qualifiers: Esophagitis presence: esophagitis presence not specified Qualified Code(s): K21.9 - Gastro-esophageal reflux disease without esophagitis (6) Hepatitis C antibody test positive Current Visit: Yes Status: Chronic (7) Nicotine dependence Current Visit: Yes Status: Chronic Qualifiers: Nicotine product type: cigarettes Substance use status: in withdrawal Qualified Code(s): F17.213 - Nicotine dependence, cigarettes, with withdrawal Cleared for Admission [facility] - Detox or Rehab [facility] Level of Care: Medically Managed Detox Regimen/Protocol: Methadone Claeared for Rehab Admission: No Breathalyzer - Breathalyzer Breathalyzer: 0 Urine Drug Screen - Test Device Lot number: [id number] Expiration date: 10/10/20 - Control Is test valid?: Yes - Results Drug screen NEGATIVE: No Urine drug screen results: ALLEN-Cocaine, FEN-Fentanyl, MOP-Opiates Inpatient Rehab Admission - Rehab Decision to Admit Inpatient rehab admission?: No"
[2019-07-21] MEDS ORDERED: MAGNESIUM CITRATE 300 ML BOTTLE PO PRN (23:53)
[2019-07-21] MEDS ORDERED: ACETAMINOPHEN 325 MG TABLET (FP) PO PRN ×2 (23:53)
[2019-07-21] MEDS ORDERED: METHADONE HCL 10 MG TABLET (FOR DETOX USE ONLY) PO ONE (23:53)
[2019-07-21] MEDS ORDERED: BISMUTH SUBSALICYLATE 524 MG/30 ML UD PO PRN (23:53)
[2019-07-21] MEDS ORDERED: ONDANSETRON *ODT* 4 MG TABLET SL ONE (23:53)
[2019-07-21] MEDS ORDERED: cloNIDine HCL 0.1 MG TABLET PO PRN (23:53)
[2019-07-21] MEDS ORDERED: NICOTINE POLACRILEX 2 MG GUM BUC PRN (23:53)
[2019-07-21] MEDS ORDERED: MAGNESIUM HYDROX 2400MG/30ML ORAL SUSPENSION 30 ML CUP PO PRN (23:53)
[2019-07-21] MEDS ORDERED: MENTHOL/PHENOL 1 EACH UD MM PRN (23:53)
[2019-07-21] MEDS ORDERED: hydrOXYzine PAMOATE 25 MG CAPSULE (FP) PO PRN (23:53)
[2019-07-21] MEDS ORDERED: MAG HYDROX/AL HYDROX/SIMETH 30 ML UNIT-DOSE CUP PO PRN (23:53)
[2019-07-22] MEDS ORDERED: PNEUMOC 13-VAL CONJ-DIP CRM/PF 0.5 ML DISP.SYRIN IM ONE (07:23)
[2019-07-22] MEDS ORDERED: METHADONE HCL 10 MG TABLET (FOR DETOX USE ONLY) ONE (08:52)
[2019-07-22] MEDS ORDERED: METHADONE HCL 5 MG TABLET (FOR DETOX USE ONLY) ONE (08:52)
--- NOTE | 2019-07-22 09:57 | PN ---
BHS COWS - Scale Resting Pulse: 1= [place] 81-100 Sweatin= No chills or Flushing Restless Observation: 3= Extraneous Movement Pupil Size: 0= Normal to Room Light Bone or Joint Aches: 2= Severe Diffuse Aches Runny Nose/ Eye Tearin= Nasal Congestion GI Upset > 30mins: 2= Nausea/Diarrhea Tremor Observation of Outstretched Hands: 2= Slight Tremor Visible Yawning Observation: 1= 1-2x During Session Anxiety or Irritability: 2=Irritable/Anxious Goose Flesh Skin: 0=Smooth Skin COWS Score: 14 [facility] Progress Note (SOAP) Subjective: alert,irritable,anxious,interrupted sleep,pain in the body,back,nausea Objective: 07/22/19 09:49 Vital Signs Temperature 98.9 F 07/22/19 08:37 Pulse Rate 90 07/22/19 08:37 Respiratory Rate 18 07/22/19 08:37 Blood Pressure 122/81 07/22/19 08:37 O2 Sat by Pulse Oximetry (%) 97 07/22/19 05:20 Assessment: 07/22/19 09:52 withdrawal symptom Plan: continue detox methadone regimen,to add valium 10 mgs po 4 hrs prn for severe withdrawal for 72 hrs
[2019-07-22] MEDS ORDERED: METHADONE (DETOX) 20 MG, METHADONE (DETOX) 5 MG PO ONE (10:00)
[2019-07-22 10:01] LABS: HEMATOCRIT 39.1 % (35.4-49); MCH 28.9 pg (25.7-33.7); MCHC 33.4 g/dl (32.0-35.9); MEAN CELL VOLUME 86.5 fl (80-96); MEAN PLT VOLUME 9.9 fl (7.5-11.1); PLATELET COUNT 199 K/MM3 (134-434); RBC 4.52 M/mm3 (4.00-5.60); WHITE BLOOD COUNT 4.9 K/mm3 (4.0-10.0)
[2019-07-22 10:09] LABS: ALBUMIN 3.8 g/dl (3.4-5.0); BILIRUBIN,TOTAL 0.6 mg/dL (0.2-1); BLOOD UREA NITROGEN 7.3 mg/dL (7-18); CREATININE 0.8 mg/dL (0.55-1.3); POTASSIUM 3.5 mmol/L (3.5-5.1); TOT PROT 6.8 g/dl (6.4-8.2)
--- NOTE | 2019-07-22 10:24 | CONSULT ---
[facility] Psychiatric Consult - Data Date of interview: 07/22/19 Admission source: [facility] Identifying data: Patient is a 24 year old single male, without children, unemployed, and resides in a fpc. This is one of multiple admissions for patient. Patient admitted to for treatment of alcohol and opioid dependence. Substance Abuse History: Smoking Cessation. Smoking history: Current every day smoker. Have you smoked in the past 12 months: Yes. Aproximately how many cigarettes per day: 20. Cigars Per Day: 0. Hx Chewing Tobacco Use: No. Initiated information on smoking cessation: Yes. 'Breaking Loose' booklet given: 07/21/19. - Substance & Tx. History. Hx Alcohol Use: No. Hx Substance Use: Yes. Substance Use Type: Cocaine, Opiates. Hx Substance Use Treatment: Yes ([facility] in [place], [place]). - Substances abused. Heroin. Substance route: Injection. Frequency: Daily. Amount used: 10 bags. Age of first use: 19. Date of last use: 07/21/19. Cocaine. Substance route: Injection. Frequency: Daily. Amount used: 1 bag. Age of first use: 15. Date of last use: 07/21/19 Medical History: Hep C. Right Femur surgery Psychiatric History: Interview conducted bedside. Patient reports history of two psychiatric hospitalizations ([facility]), most recently at [facility] in January of 2019 after he voluntary admitted himself due to depression and states that he was prescribed klonopin. History of one accidental overdose with xanax. Mr. Ham is totally lost in follow up care. Patient reports taking seroquel, trazodone, or remeron for insomnia when admitted to detox/rehab facilites. At present patient reports sleeping poorly last night. Physical/Sexual Abuse/Trauma History: denies. Mental Status Exam - Mental Status Exam Alert and Oriented to: Time, Place, Person Cognitive Function: Good Patient Appearance: Unkempt Mood: Withdrawn Affect: Mood Congruent Patient Behavior: Fatigued Speech Pattern: Delayed (Patient lethargic in bed. ) Voice Loudness: Mildly Soft/Quiet Thought Process: Goal Oriented Thought Disorder: Not Present Hallucinations: Denies Suicidal Ideation: Denies Homicidal Ideation: Denies Insight/Judgement: Poor Sleep: Poorly Appetite: Fair Muscle strength/Tone: Normal Gait/Station: Other (Gait/ station not observed.) Psychiatric Findings - Problem List ([place] 1, 2,3) (1) Cocaine use disorder Status: Chronic Comment: . (2) Opioid dependence with withdrawal Status: Acute Comment: . (3) Nicotine dependence Status: Chronic Qualifiers: Nicotine product type: cigarettes Substance use status: in withdrawal Qualified Code(s): F17.213 - Nicotine dependence, cigarettes, with withdrawal Comment: . (4) Substance induced mood disorder Status: Chronic Comment: . (5) Substance-induced sleep disorder Status: Acute - Initial Treatment Plan Initial Treatment Plan: Psychoeducation provided. Detoxification in progress. Will order Seroquel 50mg HS. Benefits and side effects discussed. Verbal consent given.
[2019-07-22] MEDS: PRENATAL VITAMINS W/ FOLIC ACID TABLET (FP) PO SCH (10:40)
[2019-07-22] MEDS: NICOTINE 14 MG/24 HOURS TOPICAL PATCH TD SCH (10:41)
--- NOTE | 2019-07-22 11:12 | EKG ---
Test Reason : Blood Pressure : / mmHG Vent. Rate : 081 BPM Atrial Rate : 081 BPM P-R Int : 188 ms QRS Dur : 102 ms QT Int : 384 ms P-R-T Axes : 047 086 057 degrees QTc Int : 446 ms NORMAL SINUS RHYTHM NORMAL ECG WHEN COMPARED WITH ECG OF 11-JUN-2016 08:57, NO SIGNIFICANT CHANGE WAS FOUND Confirmed by DIYA MCCRACKEN MD ([id number]) on 07/22/2019 11:12:19 AM Referred By: Quinn Villa Confirmed By:DIYA MCCRACKEN MD
[2019-07-22] MEDS ORDERED: FLU VACCINE QUAD 60 MCG/0.5 ML (MDV 19-20) IM ONE (12:00)
[2019-07-22] MEDS: IBUPROFEN 400 MG TABLET (FP) PO PRN (16:42)
[2019-07-22] MEDS: THIAMINE HCL 100 MG TABLET (FP) PO SCH (21:00)
[2019-07-22] MEDS: hydrOXYzine PAMOATE 25 MG CAPSULE (FP) PO PRN (21:00)
[2019-07-22] MEDS: QUEtiapine FUMARATE 50 MG TABLET PO SCH (21:01)
[2019-07-22] MEDS: MELATONIN 5 MG TABLETS PO SCH (21:03)
[2019-07-23] MEDS ORDERED: METHADONE HCL 10 MG TABLET (FOR DETOX USE ONLY) PO ONE (10:00)
[2019-07-23] MEDS: PRENATAL VITAMINS W/ FOLIC ACID TABLET (FP) PO SCH (10:18)
[2019-07-23] MEDS: NICOTINE 14 MG/24 HOURS TOPICAL PATCH TD SCH (10:19)
[2019-07-23] MEDS: diazePAM 5 MG TABLET PO PRN ×3 (10:20→20:19)
[2019-07-23] MEDS: IBUPROFEN 400 MG TABLET (FP) PO PRN (10:20)
--- NOTE | 2019-07-23 10:43 | PN ---
S COWS - Scale Resting Pulse: 1= [place] 81-100 Sweatin= No chills or Flushing Restless Observation: 1= Difficult to Sit Still Pupil Size: 0= Normal to Room Light Bone or Joint Aches: 2= Severe Diffuse Aches Runny Nose/ Eye Tearin= Nasal Congestion GI Upset > 30mins: 2= Nausea/Diarrhea Tremor Observation of Outstretched Hands: 2= Slight Tremor Visible Yawning Observation: 1= 1-2x During Session Anxiety or Irritability: 2=Irritable/Anxious Goose Flesh Skin: 0=Smooth Skin COWS Score: 12 S Progress Note (SOAP) Subjective: alert,irritable,anxious,interrupted sleep,tremor,pain in the body and ba ck,nausea Objective: 07/23/19 10:41 Vital Signs Temperature 97.7 F 07/23/19 08:30 Pulse Rate 95 H 07/23/19 08:30 Respiratory Rate 19 07/23/19 08:30 Blood Pressure 118/70 07/23/19 08:30 O2 Sat by Pulse Oximetry (%) 96 07/23/19 05:30 07/23/19 10:41 Laboratory Last Values WBC 4.9 K/mm3 (4.0-10.0) 07/22/19 07:45 RBC 4.52 M/mm3 (4.00-5.60) 07/22/19 07:45 Hgb 13.0 GM/dL (11.7-16.9) 07/22/19 07:45 Hct 39.1 % (35.4-49) 07/22/19 07:45 MCV 86.5 fl (80-96) 07/22/19 07:45 MCH 28.9 pg (25.7-33.7) 07/22/19 07:45 MCHC 33.4 g/dl (32.0-35.9) 07/22/19 07:45 RDW 15.0 % (11.9-15.9) 07/22/19 07:45 Plt Count 199 K/MM3 (134-434) 07/22/19 07:45 MPV 9.9 fl (7.5-11.1) 07/22/19 07:45 Sodium 139 mmol/L (136-145) 07/22/19 07:45 Potassium 3.5 mmol/L (3.5-5.1) 07/22/19 07:45 Chloride 103 mmol/L (98-107) 07/22/19 07:45 Carbon Dioxide 32 mmol/L (21-32) 07/22/19 07:45 Anion Gap 4 MMOL/L (8-16) L 07/22/19 07:45 BUN 7.3 mg/dL (7-18) 07/22/19 07:45 Creatinine 0.8 mg/dL (0.55-1.3) 07/22/19 07:45 Est GFR (CKD-EPI)AfAm 143.90 07/22/19 07:45 Est GFR (CKD-EPI)NonAf 124.16 07/22/19 07:45 Random Glucose 84 mg/dL (74-106) 07/22/19 07:45 Calcium 9.0 mg/dL (8.5-10.1) 07/22/19 07:45 Total Bilirubin 0.6 mg/dL (0.2-1) 07/22/19 07:45 AST 28 U/L (15-37) 07/22/19 07:45 ALT 33 U/L (13-61) 07/22/19 07:45 Alkaline Phosphatase 103 U/L (45-117) 07/22/19 07:45 Total Protein 6.8 g/dl (6.4-8.2) 07/22/19 07:45 Albumin 3.8 g/dl (3.4-5.0) 07/22/19 07:45 Syphilis Serology Non-reactive (NONREACTIVE) 07/22/19 07:45 COVID-19 (CYNDI) Not detected (Not Detected) 07/22/19 00:50 Assessment: 07/23/19 10:41 withdrawal symptom Plan: continue detox methadone regimen,add valium 10 mgs po q 4hrs prn for severe withdrawal
[2019-07-23] MEDS: hydrOXYzine PAMOATE 25 MG CAPSULE (FP) PO PRN ×2 (12:22→21:02)
[2019-07-23] MEDS ORDERED: PNEUMOC 13-VAL CONJ-DIP CRM/PF 0.5 ML DISP.SYRIN IM ONE (16:23)
[2019-07-23] MEDS ORDERED: PNEUMOCOCCAL 23 VACCINE 0.5 ML VIAL IM ONE (16:30)
[2019-07-23] MEDS: QUEtiapine FUMARATE 50 MG TABLET PO SCH (21:02)
[2019-07-23] MEDS: MELATONIN 5 MG TABLETS PO SCH (21:02)
[2019-07-23] MEDS: THIAMINE HCL 100 MG TABLET (FP) PO SCH (21:55)
[2019-07-24] MEDS: diazePAM 5 MG TABLET PO PRN ×5 (00:39→21:03)
[2019-07-24] MEDS: IBUPROFEN 400 MG TABLET (FP) PO PRN ×3 (00:41→16:42)
[2019-07-24] MEDS ORDERED: METHADONE HCL 10 MG TABLET (FOR DETOX USE ONLY) ONE (08:32)
[2019-07-24] MEDS ORDERED: METHADONE HCL 5 MG TABLET (FOR DETOX USE ONLY) ONE (08:33)
[2019-07-24] MEDS: PRENATAL VITAMINS W/ FOLIC ACID TABLET (FP) PO SCH (09:59)
[2019-07-24] MEDS ORDERED: METHADONE (DETOX) 10 MG, METHADONE (DETOX) 5 MG PO ONE (10:00)
[2019-07-24] MEDS: NICOTINE 14 MG/24 HOURS TOPICAL PATCH TD SCH (10:01)
[2019-07-24] MEDS: METHOCARBAMOL 500 MG TABLET PO PRN ×2 (10:01→16:43)
--- NOTE | 2019-07-24 16:47 | PN ---
BHS COWS - Scale Resting Pulse: 0= ID 80 or Below Sweatin= Chills/Flushing Restless Observation: 1= Difficult to Sit Still Pupil Size: 0= Normal to Room Light Bone or Joint Aches: 2= Severe Diffuse Aches Runny Nose/ Eye Tearin= None GI Upset > 30mins: 0= None Tremor Observation of Outstretched Hands: 0= None Yawning Observation: 1= 1-2x During Session Anxiety or Irritability: 4=Extreme Anxiety Goose Flesh Skin: 0=Smooth Skin COWS Score: 9 BHS Progress Note (SOAP) Subjective: Anxious, Restless, Body Aches, Interrupted Sleep. Objective: Patient A & O X 3, Observed Ambulating on Detox Unit with Assistance of a Cane. In No Acute Distress. 07/24/19 16:45 Vital Signs Temperature 97.7 F 07/24/19 12:40 Pulse Rate 63 07/24/19 12:40 Respiratory Rate 20 07/24/19 12:40 Blood Pressure 108/67 07/24/19 12:40 O2 Sat by Pulse Oximetry (%) 95 07/24/19 12:40 Laboratory Tests 07/22/19 07/22/19 07/22/19 00:50 07:45 07:45 WBC 4.9 RBC 4.52 Hgb 13.0 Hct 39.1 MCV 86.5 MCH 28.9 MCHC 33.4 RDW 15.0 Plt Count 199 MPV 9.9 Sodium Potassium Chloride Carbon Dioxide Anion Gap BUN Creatinine Est GFR (CKD-EPI)AfAm Est GFR (CKD-EPI)NonAf Random Glucose Calcium Total Bilirubin AST ALT Alkaline Phosphatase Total Protein Albumin Syphilis Serology Non-reactive COVID-19 (CYNDI) Not detected 07/22/19 07:45 WBC RBC Hgb Hct MCV MCH MCHC RDW Plt Count MPV Sodium 139 Potassium 3.5 Chloride 103 Carbon Dioxide 32 Anion Gap 4 L BUN 7.3 Creatinine 0.8 Est GFR (CKD-EPI)AfAm 143.90 Est GFR (CKD-EPI)NonAf 124.16 Random Glucose 84 Calcium 9.0 Total Bilirubin 0.6 AST 28 ALT 33 Alkaline Phosphatase 103 Total Protein 6.8 Albumin 3.8 Syphilis Serology COVID-19 (CYNDI) Lab Results noted. Assessment: 07/24/19 16:46 WITHDRAWAL SYMPTOMS. Plan: Continue Detox. Patient requests dosage modification of medications currently prescribed for treatment of Insomnia. Psychiatric Consultation ordered for further evaluation.
--- NOTE | 2019-07-24 17:35 | PN ---
Psychiatric Progress Note Vital Signs: Vital Signs Period Temp Pulse Resp BP Sys/Balderas Pulse Ox Last 24 Hr 97.7 F-98.0 F 63-86 16-20 100-122/54-78 95-98 Date of Session: 07/24/19 Chief Complaint:: " I cannot sleep at night. I need more seroquel for relief." HPI: Hospital course is unremarkable. Reason for psychiatric re-evaluation : adjust dose of seroquel for management of insomnia. ROS: Unremarkable. No somatic complaints. Patient is alert and fully oriented. Current Medications: Active Medications Generic Name Dose Route Start Last Admin Trade Name Freq PRN Reason Stop Dose Admin Acetaminophen 650 mg 07/21/19 23:53 07/22/19 21:01 Tylenol - PO 650 mg Q6H PRN Administration PAIN LEVEL 4 - 6 Acetaminophen 650 mg 07/21/19 23:53 Tylenol - PO Q6H PRN FEVER Al Hydroxide/Mg Hydroxide 30 ml 07/21/19 23:53 Mylanta Oral Suspension - PO Q6H PRN DYSPEPSIA Bismuth Subsalicylate 524 mg 07/21/19 23:53 Pepto-Bismol - PO Q1H PRN DIARRHEA Diazepam 10 mg 07/23/19 07:14 07/24/19 16:42 Valium - PO 07/26/19 07:13 10 mg Q4H PRN Administration WITHDRAWAL(CONT SUBST) Eucalyptus/Menthol/Phenol/Sorbitol 1 each 07/21/19 23:53 Cepastat Lozenge - MM 07/27/19 23:53 Q4H PRN SORE THROAT Hydroxyzine Pamoate 25 mg 07/22/19 13:07 07/23/19 21:02 Vistaril - PO 07/27/19 23:54 25 mg Q4H PRN Administration ANXIETY Ibuprofen 400 mg 07/21/19 23:53 07/24/19 16:42 Motrin - PO 400 mg Q6H PRN Administration PAIN LEVEL 1 - 3 Magnesium Citrate 300 ml 07/21/19 23:53 Citroma - PO Q48H PRN CONSTIPATION Magnesium Hydroxide 30 ml 07/21/19 23:53 Milk Of Magnesia - PO PRN PRN CONSTIPATION Melatonin 5 mg 07/22/19 22:00 07/23/19 21:02 Melatonin PO 5 mg HS DEBI Administration Methadone HCl 5 mg 07/26/19 06:00 Dolophine - PO 07/26/19 06:01 ONCE@0600 ONE Methadone HCl 10 mg 07/25/19 10:00 Dolophine - PO 07/25/19 10:01 ONCE ONE Methocarbamol 500 mg 07/21/19 23:53 07/24/19 16:43 Robaxin - PO 07/27/19 23:53 500 mg Q6H PRN Administration MUSCLE SPASMS Nicotine 14 mg 07/22/19 10:00 07/24/19 10:01 Nicoderm Patch - TD 14 mg DAILY DBEI Administration Nicotine Polacrilex 2 mg 07/21/19 23:53 Nicorette Gum - BUC Q2H PRN NICOTINE REPLACEMENT RX Multivit/Folic Acid/Iron 1 tab 07/22/19 10:00 07/24/19 09:59 Vitamins (Sjr) - PO 1 tab DAILY DEBI Administration Quetiapine Fumarate 50 mg 07/22/19 22:00 07/23/19 21:02 Seroquel - PO 50 mg HS DEBI Administration Thiamine HCl 100 mg 07/22/19 22:00 07/23/19 21:55 Vitamin B1 - PO Not Given HS DEBI Medication(s) Change(s): Seroquel is raised to 100 mg po hs (from 50 mg). Side effects/benefits discussed with the patient. Made aware of the risk of sedation, falls, metabolic syndrome and abnormal involuntary movements. Mr Ham gave informed consent (verbal) to MD. Current Side Effect: No Lab tests ordered: No Lab tests reviewed: Yes Provider note:: Chart reviewed. Consult note of 07/22/19 from wrecking car driver Jannie Major : read and appreciated. Met with the patient. No acute psychiatric issues. Patient wanted to see the psychiatrist to discuss adjustment of his dose of seroquel. He is appropriate, cooperative and able to negotiate without resorting to escalating behavior. Patient insists on staying on seroquel (in spite of being informed of the off-label nature of the drug's utilization). Hospital course remains unremarkable. Patient indicates his interest for r ehabilitation treatment upon completion of this plan of care. Stable mental status. See MSE report for details. Observation. Total face to face time:: 25 Mental Status Exam - Mental Status Exam Alert and Oriented to: Time, Place, Person Cognitive Function: Good Patient Appearance: Unkempt (tall stature), Disheveled Mood: Nervous, Anxious Affect: Appropriate, Mood Congruent Patient Behavior: Fatigued, Cooperative Speech Pattern: Clear, Appropriate Voice Loudness: Normal Thought Process: Intact, Goal Oriented Thought Disorder: Not Present Hallucinations: Denies Suicidal Ideation: Denies Homicidal Ideation: Denies Insight/Judgement: Poor Sleep: Poorly, Difficulty falling asleep Appetite: Good (observed eating his meal) Gait/Station: Other (ambulates with a cane) Psychiatric Treatment Plan - Problem List (1) Opioid dependence with withdrawal Comment: . (2) Cocaine use disorder Comment: . (3) Nicotine dependence Qualifiers: Nicotine product type: cigarettes Substance use status: in withdrawal Qualified Code(s): F17.213 - Nicotine dependence, cigarettes, with withdrawal Comment: . (4) Substance induced mood disorder Comment: . (5) Insomnia Comment: .
[2019-07-24] MEDS: THIAMINE HCL 100 MG TABLET (FP) PO SCH (21:03)
[2019-07-24] MEDS: MELATONIN 5 MG TABLETS PO SCH (21:03)
[2019-07-24] MEDS: hydrOXYzine PAMOATE 25 MG CAPSULE (FP) PO PRN (21:03)
[2019-07-24] MEDS: QUEtiapine FUMARATE 100 MG TABLET (FP) PO SCH (21:05)
[2019-07-25] MEDS: diazePAM 5 MG TABLET PO PRN ×3 (08:37→20:59)
[2019-07-25] MEDS: PRENATAL VITAMINS W/ FOLIC ACID TABLET (FP) PO SCH (09:50)
[2019-07-25] MEDS: IBUPROFEN 400 MG TABLET (FP) PO PRN (09:51)
[2019-07-25] MEDS: NICOTINE 14 MG/24 HOURS TOPICAL PATCH TD SCH (09:52)
--- NOTE | 2019-07-25 09:54 | PN ---
[facility] COWS - Scale Resting Pulse: 2= CT 101-120 Sweatin= Chills/Flushing Restless Observation: 0= Sits Still Pupil Size: 0= Normal to Room Light Bone or Joint Aches: 1= Mild Discomfort Runny Nose/ Eye Tearin= None GI Upset > 30mins: 0= None Tremor Observation of Outstretched Hands: 1= Tremor [place], Not Seen Yawning Observation: 0= None Anxiety or Irritability: 1=Feels Anxious/Irritable Goose Flesh Skin: 0=Smooth Skin COWS Score: 6 [facility] Progress Note (SOAP) Subjective: 24 years old male admitted on 07/21/19 for opiate withdrawal sx management treating with methadone detox regiment feeling better today anxious about discharge tomorrow discussing medication assisted treatment program and picking up narcan from pharmacy Objective: 07/25/19 09:55 Vital Signs - 24 hr 07/24/19 07/24/19 07/24/19 12:40 16:34 20:30 Temperature 97.7 F 97.7 F 97.8 F Pulse Rate 63 80 92 H Respiratory 20 18 18 Rate Blood Pressure 108/67 134/79 113/71 O2 Sat by Pulse 95 97 Oximetry (%) 07/25/19 07/25/19 07/25/19 00:19 03:23 06:00 Temperature 98.4 F Pulse Rate 53 L Respiratory 18 16 18 Rate Blood Pressure 109/51 L O2 Sat by Pulse 98 Oximetry (%) 07/25/19 08:35 Temperature 96.9 F L Pulse Rate 120 H Respiratory 20 Rate Blood Pressure 121/78 O2 Sat by Pulse Oximetry (%) Laboratory Tests 07/22/19 07/22/19 07/22/19 00:50 07:45 07:45 WBC 4.9 RBC 4.52 Hgb 13.0 Hct 39.1 MCV 86.5 MCH 28.9 MCHC 33.4 RDW 15.0 Plt Count 199 MPV 9.9 Sodium Potassium Chloride Carbon Dioxide Anion Gap BUN Creatinine Est GFR (CKD-EPI)AfAm Est GFR (CKD-EPI)NonAf Random Glucose Calcium Total Bilirubin AST ALT Alkaline Phosphatase Total Protein Albumin Syphilis Serology Non-reactive COVID-19 (CYNDI) Not detected 07/22/19 07:45 WBC RBC Hgb Hct MCV MCH MCHC RDW Plt Count MPV Sodium 139 Potassium 3.5 Chloride 103 Carbon Dioxide 32 Anion Gap 4 L BUN 7.3 Creatinine 0.8 Est GFR (CKD-EPI)AfAm 143.90 Est GFR (CKD-EPI)NonAf 124.16 Random Glucose 84 Calcium 9.0 Total Bilirubin 0.6 AST 28 ALT 33 Alkaline Phosphatase 103 Total Protein 6.8 Albumin 3.8 Syphilis Serology COVID-19 (CYNDI) anxious about discharge tomorrow due to chronic right leg pain taking oxy for pain ambulating with cane Assessment: 07/25/19 09:57 opiate withdrawal chronic right leg pain since 201707/25/19 09:58 Plan: methadone regiment supportive pain management
[2019-07-25] MEDS ORDERED: METHADONE HCL 10 MG TABLET (FOR DETOX USE ONLY) PO ONE (10:00)
[2019-07-25] MEDS: hydrOXYzine PAMOATE 25 MG CAPSULE (FP) PO PRN ×3 (11:32→20:59)
[2019-07-25] MEDS: MELATONIN 5 MG TABLETS PO SCH (20:59)
[2019-07-25] MEDS: QUEtiapine FUMARATE 100 MG TABLET (FP) PO SCH (20:59)
[2019-07-25] MEDS: THIAMINE HCL 100 MG TABLET (FP) PO SCH (20:59)
[2019-07-26] MEDS ORDERED: METHADONE HCL 5 MG TABLET (FOR DETOX USE ONLY) PO ONE (06:00)
[2019-07-26] MEDS: hydrOXYzine PAMOATE 25 MG CAPSULE (FP) PO PRN (06:14)
[2019-07-26] MEDS: diazePAM 5 MG TABLET PO PRN (06:14)
[2019-07-26] MEDS: IBUPROFEN 400 MG TABLET (FP) PO PRN (06:15)
[2019-07-26 09:07] VITALS: BP 130/74; PULSE 88; TEMP 97.5
--- NOTE | 2019-07-26 10:09 | PN ---
[facility] COWS - Scale Resting Pulse: 1= MS 81-100 Sweatin= No chills or Flushing Restless Observation: 0= Sits Still Pupil Size: 0= Normal to Room Light Bone or Joint Aches: 0= None Runny Nose/ Eye Tearin= None GI Upset > 30mins: 0= None Tremor Observation of Outstretched Hands: 0= None Yawning Observation: 0= None Anxiety or Irritability: 1=Feels Anxious/Irritable Goose Flesh Skin: 0=Smooth Skin COWS Score: 2 BHS Progress Note (SOAP) Subjective: alert,no complaint Objective: 07/26/19 10:08 Vital Signs Temperature 97.5 F L 07/26/19 08:38 Pulse Rate 88 07/26/19 08:38 Respiratory Rate 18 07/26/19 08:38 Blood Pressure 130/74 07/26/19 08:38 O2 Sat by Pulse Oximetry (%) 98 07/26/19 05:13 Assessment: 07/26/19 10:08 detox completed,no withdrawal symptom Plan: stable for discharge today,follow up with after care program as arrangement
--- NOTE | 2019-07-26 10:10 | DS ---
[facility] Detox Discharge Summary Admission Date: 07/21/19 Discharge Date: 07/26/19 - History Present History: Cocaine Dependence, Opioid Dependence Additional Comments: alert,oriented x 3 ambulation on the unit lung clear no abdominal pain detox completed,no withdrawal symptom stable for discharge today follow up with after care program as arrangement,[facility] total time of discharge 35 minutes Pertinent Past History: hepatitis c insomnia nicotine dependence history of surgery right femur - Physical Exam Results Vital Signs: Vital Signs Temperature 97.5 F L 07/26/19 08:38 Pulse Rate 88 07/26/19 08:38 Respiratory Rate 18 07/26/19 08:38 Blood Pressure 130/74 07/26/19 08:38 O2 Sat by Pulse Oximetry (%) 98 07/26/19 05:13 Pertinent Admission Physical Exam Findings: withdrawal sign and symptom Vital Signs Temperature 97.5 F L 07/26/19 08:38 Pulse Rate 88 07/26/19 08:38 Respiratory Rate 18 07/26/19 08:38 Blood Pressure 130/74 07/26/19 08:38 O2 Sat by Pulse Oximetry (%) 98 07/26/19 05:13 Laboratory Last Values WBC 4.9 K/mm3 (4.0-10.0) 07/22/19 07:45 RBC 4.52 M/mm3 (4.00-5.60) 07/22/19 07:45 Hgb 13.0 GM/dL (11.7-16.9) 07/22/19 07:45 Hct 39.1 % (35.4-49) 07/22/19 07:45 MCV 86.5 fl (80-96) 07/22/19 07:45 MCH 28.9 pg (25.7-33.7) 07/22/19 07:45 MCHC 33.4 g/dl (32.0-35.9) 07/22/19 07:45 RDW 15.0 % (11.9-15.9) 07/22/19 07:45 Plt Count 199 K/MM3 (134-434) 07/22/19 07:45 MPV 9.9 fl (7.5-11.1) 07/22/19 07:45 Sodium 139 mmol/L (136-145) 07/22/19 07:45 Potassium 3.5 mmol/L (3.5-5.1) 07/22/19 07:45 Chloride 103 mmol/L (98-107) 07/22/19 07:45 Carbon Dioxide 32 mmol/L (21-32) 07/22/19 07:45 Anion Gap 4 MMOL/L (8-16) L 07/22/19 07:45 BUN 7.3 mg/dL (7-18) 07/22/19 07:45 Creatinine 0.8 mg/dL (0.55-1.3) 07/22/19 07:45 Est GFR (CKD-EPI)AfAm 143.90 07/22/19 07:45 Est GFR (CKD-EPI)NonAf 124.16 07/22/19 07:45 Random Glucose 84 mg/dL (74-106) 07/22/19 07:45 Calcium 9.0 mg/dL (8.5-10.1) 07/22/19 07:45 Total Bilirubin 0.6 mg/dL (0.2-1) 07/22/19 07:45 AST 28 U/L (15-37) 07/22/19 07:45 ALT 33 U/L (13-61) 07/22/19 07:45 Alkaline Phosphatase 103 U/L (45-117) 07/22/19 07:45 Total Protein 6.8 g/dl (6.4-8.2) 07/22/19 07:45 Albumin 3.8 g/dl (3.4-5.0) 07/22/19 07:45 Syphilis Serology Non-reactive (NONREACTIVE) 07/22/19 07:45 COVID-19 (CYNDI) Not detected (Not Detected) 07/22/19 00:50 - Treatment Hospital Course: Detox Protocol Followed, Detoxed Safely, Responded well, Discharged Condition Good, Rehab Referral Accepted Patient has Accepted a Rehab Referral to: [facility] - Medication Discharge Medications: Ambulatory Orders Naloxone HCl [Narcan] 4 mg NS ASDIR PRN #1 spray 07/25/19 - Diagnosis (1) Opioid dependence with withdrawal Status: Acute (2) Hepatitis C antibody test positive Status: Chronic (3) Nicotine dependence Status: Chronic Qualifiers: Nicotine product type: cigarettes Substance use status: in withdrawal Qualified Code(s): F17.213 - Nicotine dependence, cigarettes, with withdrawal (4) Substance induced mood disorder Status: Acute (5) Substance-induced sleep disorder Status: Acute (6) History of fracture of femur Status: Acute - AMA Did Patient Leave Against Medical Advice: No
[2019-07-26] MEDS: NICOTINE 14 MG/24 HOURS TOPICAL PATCH TD SCH (10:18)
[2019-07-26] MEDS: PRENATAL VITAMINS W/ FOLIC ACID TABLET (FP) PO SCH (10:18)
== END 2019-07-26 10:37 | disposition other institution (70) | DRG 773 ==
LOC: YASAS 22:16 → Y6N 23:04 → Y3N 07-23 11:45
PROVIDERS: ADMIT Allergy & Immunology; ATTEND Allergy & Immunology
PROC: HZ2ZZZZ Detoxification Services for Substance Abuse Treatment (ICD-10-PCS; principal; 2019-07-21)
DX: F11.23 Opioid dependence with withdrawal (principal); F14.20 Cocaine dependence, uncomplicated; F17.210 Nicotine dependence, cigarettes, uncomplicated; F19.282 Other psychoactive substance dependence with psychoactive substance-induced sleep disorder; F19.24 Other psychoactive substance dependence with psychoactive substance-induced mood disorder; F31.9 Bipolar disorder, unspecified; F34.1 Dysthymic disorder; F90.9 Attention-deficit hyperactivity disorder, unspecified type; G47.00 Insomnia, unspecified; K21.9 Gastro-esophageal reflux disease without esophagitis; B18.2 Chronic viral hepatitis C; M18.2 Bilateral post-traumatic osteoarthritis of first carpometacarpal joints; M79.604 Pain in right leg; G89.29 Other chronic pain; Z99.89 Dependence on other enabling machines and devices; Z98.890 Other specified postprocedural states; Z56.0 Unemployment, unspecified; Z59.0 Homelessness
CPT/HCPCS: 36415; 80053; 85027; 86780; 90732; 93005; 93010; G0008; G0009; Q0162; Q2036; U0003

== ENCOUNTER 2019-07-26 10:38 | Inpatient (IN) | payer OTHER ==
[2019-07-26] MEDS ORDERED: MAGNESIUM CITRATE 300 ML BOTTLE PO PRN (12:05)
[2019-07-26] MEDS ORDERED: MENTHOL/PHENOL 1 EACH UD MM PRN (12:05)
[2019-07-26] MEDS ORDERED: LOPERAMIDE HCL 2 MG CAPSULE PO PRN (12:05)
[2019-07-26] MEDS ORDERED: guaiFENesin 200 MG/10 ML 10 ML UNIT-DOSE CUPS PO PRN (12:05)
[2019-07-26] MEDS ORDERED: P-EPHED 60MG/TRIPROLIDI 2.5MG TABLET PO PRN (12:05)
[2019-07-26] MEDS ORDERED: NICOTINE POLACRILEX 2 MG GUM BUC PRN (12:05)
[2019-07-26] MEDS ORDERED: MAGNESIUM HYDROX 2400MG/30ML ORAL SUSPENSION 30 ML CUP PO PRN (12:05)
--- NOTE | 2019-07-26 12:09 | HP ---
[facility] Rehab Assess/Revision - Admission History Admitted to Rehab from: [facility] Date of Admission to Rehab: 07/26/2019 - Vital signs Vital Signs: Vital Signs Period Temp Pulse Resp BP Sys/Balderas Pulse Ox Last 24 Hr 98 F 92 16 116/70 - Findings Detox History & Physical reviewed: Yes Concur with findings: Yes Inpatient Rehab Admission - Rehab Decision to Admit Inpatient rehab admission?: Yes - Initial Determination Are CD services needed?: Yes Free of communicable disease: Yes Not in need of hospitalization: Yes - Rehab Admission Criteria Previous failed treatment: Yes Poor recovery environment: Yes Comorbidities: Yes Lacks judgement: No Patient is meeting Inpatient Rehab admission criteria:: Yes
--- NOTE | 2019-07-26 12:09 | PN ---
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 Completed detox today at [facility]. He reports he started sniffing at age 19 and IVDU in 2016; + dependence of BZO (unprescribed xanax). Past medical history of Hep. C (not treated ), Overdose, GERD, ADHD, Bipolar disorder, depression and mood disorder. Vital Signs Temperature 98 F 07/26/19 10:57 Pulse Rate 92 H 07/26/19 10:57 Respiratory Rate 16 07/26/19 10:57 Blood Pressure 116/70 07/26/19 10:57 O2 Sat by Pulse Oximetry (%) PE patient conversing with kick plate installer alert and oriented x 3 amb with cane in no apparent distress A/P: Opiod/BZO dependence Hx of Hep C (untreated) Admitted to rehab at [address] [place] [address]
[2019-07-26] MEDS ORDERED: hydrOXYzine PAMOATE 25 MG CAPSULE (FP) PO SCH (14:00)
[2019-07-26] MEDS: IBUPROFEN 400 MG TABLET (FP) PO PRN (15:42)
[2019-07-26] MEDS: hydrOXYzine PAMOATE 25 MG CAPSULE (FP) PO PRN ×2 (15:42→18:45)
--- NOTE | 2019-07-26 17:06 | PN ---
[facility] Progress Note Note: Patient was seen by Psych while in detox and was prescribed seroquel. Vital Signs 07/26/19 07/26/19 10:57 14:29 Temperature 98 F Pulse Rate 92 H Respiratory 16 Rate Blood Pressure 116/70 O2 Sat by Pulse 96 Oximetry (%) Based on review of psych notes, will continue on seroquel 100 mg PO HS.
[2019-07-26] MEDS: MAG HYDROX/AL HYDROX/SIMETH 30 ML UNIT-DOSE CUP PO PRN (18:22)
[2019-07-26] MEDS: ACETAMINOPHEN 325 MG TABLET (FP) PO PRN (18:25)
[2019-07-26] MEDS: MELATONIN 5 MG TABLETS PO SCH (21:04)
[2019-07-26] MEDS: QUEtiapine FUMARATE 100 MG TABLET (FP) PO SCH (21:04)
[2019-07-26] MEDS: THIAMINE HCL 100 MG TABLET (FP) PO SCH (21:04)
[2019-07-27] MEDS: hydrOXYzine PAMOATE 25 MG CAPSULE (FP) PO PRN ×4 (06:36→21:11)
[2019-07-27] MEDS: IBUPROFEN 400 MG TABLET (FP) PO PRN ×3 (06:36→21:12)
[2019-07-27] MEDS: PRENATAL VITAMINS W/ FOLIC ACID TABLET (FP) PO SCH (09:55)
[2019-07-27] MEDS: NICOTINE 14 MG/24 HOURS TOPICAL PATCH TD SCH (09:55)
--- NOTE | 2019-07-27 15:11 | PN ---
[facility] Progress Note Note: Patient reports sleeping poorly despite taking Seroquel 100 mg/hs, Melatonin 5 mg and Vistaril 25 mg/hs. Hypnoptic properties of Belsomra discussed with patient and he agreed to try it
[2019-07-27] MEDS: MELATONIN 5 MG TABLETS PO SCH (21:10)
[2019-07-27] MEDS: QUEtiapine FUMARATE 100 MG TABLET (FP) PO SCH (21:10)
[2019-07-27] MEDS: THIAMINE HCL 100 MG TABLET (FP) PO SCH (21:10)
[2019-07-27] MEDS: SUVOREXANT 10 MG TABLET PO PRN (21:10)
[2019-07-28] MEDS: hydrOXYzine PAMOATE 25 MG CAPSULE (FP) PO PRN ×2 (10:10→21:02)
[2019-07-28] MEDS: PRENATAL VITAMINS W/ FOLIC ACID TABLET (FP) PO SCH (10:10)
[2019-07-28] MEDS: NICOTINE 14 MG/24 HOURS TOPICAL PATCH TD SCH (10:10)
[2019-07-28] MEDS: IBUPROFEN 400 MG TABLET (FP) PO PRN (10:10)
--- NOTE | 2019-07-28 11:23 | CONSULT ---
[facility] Psychiatric Consult - Data Date of interview: 07/28/19 Admission source: Transfer from [address] [place] [address]. Identifying data: Patient is already known to [facility] (first visit in 2017). Mr Ham has completed detoxification treatment at [address] [place] [address] prior to his transfer to [address] where he will continue, in rehabilitation, to address his JANAK issues (opioid, cocaine, benzodiazepines, nicotine) co-morbid with substance-induced mood disorder and chronic insomnia. Patient is a 24 years old male, single, no dependents, unemployed, domiciled (resides at the [facility] in [facility]) and supported on welfare. Substance Abuse History: Discussed with the patient. JANAK profile as follows : Smoking history: Current every day smoker. Have you smoked in the past 12 months: Yes. Aproximately how many cigarettes per day: 20. Cigars Per Day: 0. Hx Chewing Tobacco Use: No. Initiated information on smoking cessation: Yes. 'Breaking Loose' booklet given: 07/21/19. - Substance & Tx. History. Hx Alcohol Use: No. Hx Substance Use: Yes. Substance Use Type: Cocaine, Opiates. Hx Substance Use Treatment: Yes ([facility] in [place], [place]). - Substances abused. Heroin. Substance route: Injection. Frequency: Daily. Amount used: 10 bags. Age of first use: 19. Date of last use: 07/21/19. Cocaine. Substance route: Injection. Frequency: Daily. Amount used: 1 bag. Age of first use: 15. Date of last use: 07/21/19 Medical History: Medical profile is remarkable for hepatitis C (untreated), GERD, antecedent of orthosurgery (right leg) and recent history (couple of weeks ago, as per self-report) of accidental fall in the streets. Patient ambulates with a cane. Noted report of opioid overdose (treated at [facility] in [facility]) prior to this [facility] visit. Mr Ham presents with a history of alcohol syndrome. Psychiatric History: Patient endorses history of two psychiatric hospitalizations ([facility] in 2016 + [facility] in 2019). Last admission to a psychiatric inpatient service was in January 2019 at [facility]. Was reportedly diagnosed with MDD and Anxiety Disorder. Mr Fatoumata reports total non-adherence to OPD care. He admits to past scripts for clonazepam, seroquel, trazodone and remeron (from providers at various JANAK treatment centers). In this interview, the patient indicates that he has been off medications for several weeks (until [facility] visit). Denies history of suicide attempts. 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 Additional Comment: Urine drug screen results: ALLEN-Cocaine, FEN-Fentanyl, MOP- Opiates. Noted. Mental Status Exam - Mental Status Exam Alert and Oriented to: Time, Place, Person Cognitive Function: Good Patient Appearance: Well Groomed (considerably improved personal hygiene) Mood: Hopeful Affect: Appropriate, Normal Range Patient Behavior: Appropriate, Cooperative (friendly) Speech Pattern: Clear, Appropriate Voice Loudness: Normal Thought Process: Intact, Goal Oriented Thought Disorder: Not Present Hallucinations: Denies Suicidal Ideation: Denies Homicidal Ideation: Denies Insight/Judgement: Fair Sleep: Well (sleep is reported as much improved since augmentation with suvorexant, as per patient) Appetite: Good Gait/Station: Other (steadier gait; ambulation with cane) Psychiatric Findings - Problem List ([place] 1, 2,3) (1) Opioid use disorder Current Visit: Yes Status: Chronic (2) Cocaine use disorder Current Visit: Yes Status: Chronic Comment: . (3) Nicotine dependence Current Visit: Yes Status: Chronic Qualifiers: Nicotine product type: cigarettes Substance use status: in withdrawal Qualified Code(s): F17.213 - Nicotine dependence, cigarettes, with withdrawal Comment: . (4) Substance induced mood disorder Current Visit: Yes Status: Chronic Comment: . (5) History of attention deficit hyperactivity disorder (ADHD) Current Visit: Yes Status: Chronic (6) Insomnia Current Visit: Yes Status: Chronic Comment: Improved on a regimen of seroquel + belsomra. (7) Non-compliance Current Visit: Yes Status: Chronic Comment: Patient is chronically non- adherent to OPD care. - Initial Treatment Plan Initial Treatment Plan: Rehabilitation treatment : psychoeducation, supportive therapy, motivational counseling, NA meetings (with full observance of current COVID-19 guidelines : face mask, social distancing, hand washing), sleep hygiene, recreational therapy and medication management. Will continue, with the patient's consent, seroquel 100 mg po hs + belsomra 10 mg po hs prn (in view of favorable response). Side effects/benefits of both molecules are discussed in session. Mr Ham consented (verbally) to this plan of care. Observation.
[2019-07-28] MEDS: THIAMINE HCL 100 MG TABLET (FP) PO SCH (21:02)
[2019-07-28] MEDS: QUEtiapine FUMARATE 100 MG TABLET (FP) PO SCH (21:02)
[2019-07-28] MEDS: MELATONIN 5 MG TABLETS PO SCH (21:02)
[2019-07-28] MEDS: SUVOREXANT 10 MG TABLET PO PRN (21:03)
[2019-07-29] MEDS: NICOTINE 14 MG/24 HOURS TOPICAL PATCH TD SCH (10:11)
[2019-07-29] MEDS: IBUPROFEN 400 MG TABLET (FP) PO PRN ×2 (10:11→20:14)
[2019-07-29] MEDS: hydrOXYzine PAMOATE 25 MG CAPSULE (FP) PO PRN ×3 (10:11→20:14)
[2019-07-29] MEDS: PRENATAL VITAMINS W/ FOLIC ACID TABLET (FP) PO SCH (10:11)
[2019-07-29] MEDS: ACETAMINOPHEN 325 MG TABLET (FP) PO PRN (14:07)
--- NOTE | 2019-07-29 14:41 | PN ---
[facility] Progress Note Note: patient wanted to discuss scheduled orthopedic surgery to repair injury to right knee. It has been postponed twice. I am concerned about his refusal to eat anything but saltine crackers (10 per meal) and chocolate chip cookies. He is refusing all other food and gives away all the other food on his tray. Ensure was ordered, but he is refusing that also. Vital Signs Period Temp Pulse Resp BP Sys/Balderas Pulse Ox Last 24 Hr 97.6 F-98.6 F 83 18-18 122/67 96-98 P/E: General: no apparent distress HEENTM: poor dentition, normocephalic NECK: supple Lungs: respirations unlabored ABD: +BS, thin, flat MSK: ambulates with cane, the cane is too short for his height SKIN: pale EXTREMITIES: several lacerations to his right leg, deformed A/P: undernourished-encouraged increased intake, nutritional consult, JANAK
[2019-07-29] MEDS: MELATONIN 5 MG TABLETS PO SCH (21:12)
[2019-07-29] MEDS: THIAMINE HCL 100 MG TABLET (FP) PO SCH (21:12)
[2019-07-29] MEDS: SUVOREXANT 10 MG TABLET PO PRN (21:13)
[2019-07-29] MEDS: QUEtiapine FUMARATE 100 MG TABLET (FP) PO SCH (21:13)
[2019-07-30] MEDS: IBUPROFEN 400 MG TABLET (FP) PO PRN ×3 (07:02→21:13)
[2019-07-30] MEDS: hydrOXYzine PAMOATE 25 MG CAPSULE (FP) PO PRN ×4 (07:02→21:13)
[2019-07-30] MEDS: PRENATAL VITAMINS W/ FOLIC ACID TABLET (FP) PO SCH (10:31)
[2019-07-30] MEDS: NICOTINE 14 MG/24 HOURS TOPICAL PATCH TD SCH (10:31)
[2019-07-30] MEDS: SUVOREXANT 10 MG TABLET PO PRN (21:13)
[2019-07-30] MEDS: MELATONIN 5 MG TABLETS PO SCH (21:13)
[2019-07-30] MEDS: THIAMINE HCL 100 MG TABLET (FP) PO SCH (21:13)
[2019-07-30] MEDS: QUEtiapine FUMARATE 100 MG TABLET (FP) PO SCH (21:13)
[2019-07-31] MEDS: hydrOXYzine PAMOATE 25 MG CAPSULE (FP) PO PRN ×3 (07:47→21:27)
[2019-07-31] MEDS: IBUPROFEN 400 MG TABLET (FP) PO PRN ×2 (07:47→15:44)
[2019-07-31] MEDS: MAG HYDROX/AL HYDROX/SIMETH 30 ML UNIT-DOSE CUP PO PRN (07:49)
[2019-07-31] MEDS: PRENATAL VITAMINS W/ FOLIC ACID TABLET (FP) PO SCH (10:52)
[2019-07-31] MEDS: NICOTINE 14 MG/24 HOURS TOPICAL PATCH TD SCH (10:52)
[2019-07-31] MEDS: MELATONIN 5 MG TABLETS PO SCH (21:26)
[2019-07-31] MEDS: QUEtiapine FUMARATE 100 MG TABLET (FP) PO SCH (21:26)
[2019-07-31] MEDS: THIAMINE HCL 100 MG TABLET (FP) PO SCH (21:26)
[2019-07-31] MEDS: SUVOREXANT 10 MG TABLET PO PRN (21:26)
[2019-07-31] MEDS: ACETAMINOPHEN 325 MG TABLET (FP) PO PRN (21:28)
[2019-08-01] MEDS: NICOTINE 14 MG/24 HOURS TOPICAL PATCH TD SCH (10:23)
[2019-08-01] MEDS: PRENATAL VITAMINS W/ FOLIC ACID TABLET (FP) PO SCH (10:23)
[2019-08-01] MEDS: IBUPROFEN 400 MG TABLET (FP) PO PRN ×2 (13:44→21:10)
[2019-08-01] MEDS: hydrOXYzine PAMOATE 25 MG CAPSULE (FP) PO PRN ×2 (13:44→21:10)
[2019-08-01] MEDS: THIAMINE HCL 100 MG TABLET (FP) PO SCH (21:10)
[2019-08-01] MEDS: MELATONIN 5 MG TABLETS PO SCH (21:10)
[2019-08-01] MEDS: QUEtiapine FUMARATE 100 MG TABLET (FP) PO SCH (21:10)
[2019-08-01] MEDS: SUVOREXANT 10 MG TABLET PO PRN (21:11)
[2019-08-02] MEDS: IBUPROFEN 400 MG TABLET (FP) PO PRN ×2 (10:02→21:39)
[2019-08-02] MEDS: hydrOXYzine PAMOATE 25 MG CAPSULE (FP) PO PRN ×2 (10:02→21:38)
[2019-08-02] MEDS: NICOTINE 14 MG/24 HOURS TOPICAL PATCH TD SCH (10:03)
[2019-08-02] MEDS: PRENATAL VITAMINS W/ FOLIC ACID TABLET (FP) PO SCH (10:29)
[2019-08-02] MEDS: QUEtiapine FUMARATE 100 MG TABLET (FP) PO SCH (21:37)
[2019-08-02] MEDS: THIAMINE HCL 100 MG TABLET (FP) PO SCH (21:37)
[2019-08-02] MEDS: SUVOREXANT 10 MG TABLET PO PRN (21:38)
[2019-08-02] MEDS: MELATONIN 5 MG TABLETS PO SCH (21:38)
--- NOTE | 2019-08-03 10:28 | PN ---
[facility] Progress Note Note: Vital Signs Period Temp Pulse Resp BP Sys/Balderas Pulse Ox Last 24 Hr 98.0 F-98.3 F 63 18-18 108/62 97-97 Seen by foxerSue recommended. Ordered; will encourage patient to take with meals.
[2019-08-03] MEDS: PRENATAL VITAMINS W/ FOLIC ACID TABLET (FP) PO SCH (10:32)
[2019-08-03] MEDS: NICOTINE 14 MG/24 HOURS TOPICAL PATCH TD SCH (10:32)
[2019-08-03] MEDS: IBUPROFEN 400 MG TABLET (FP) PO PRN ×2 (15:32→21:21)
[2019-08-03] MEDS: hydrOXYzine PAMOATE 25 MG CAPSULE (FP) PO PRN ×2 (15:32→21:20)
[2019-08-03] MEDS: AMINO ACIDS/PROTEIN HYDROLYS 30 ML LIQUID.PKT PO SCH (17:33)
[2019-08-03] MEDS: QUEtiapine FUMARATE 100 MG TABLET (FP) PO SCH (21:20)
[2019-08-03] MEDS: MELATONIN 5 MG TABLETS PO SCH (21:20)
[2019-08-03] MEDS: THIAMINE HCL 100 MG TABLET (FP) PO SCH (21:20)
[2019-08-03] MEDS: SUVOREXANT 10 MG TABLET PO PRN (21:20)
[2019-08-04] MEDS: AMINO ACIDS/PROTEIN HYDROLYS 30 ML LIQUID.PKT PO SCH ×2 (08:27→17:45)
[2019-08-04] MEDS: IBUPROFEN 400 MG TABLET (FP) PO PRN (09:44)
[2019-08-04] MEDS: hydrOXYzine PAMOATE 25 MG CAPSULE (FP) PO PRN (09:44)
[2019-08-04] MEDS: PRENATAL VITAMINS W/ FOLIC ACID TABLET (FP) PO SCH (10:22)
[2019-08-04] MEDS: NICOTINE 14 MG/24 HOURS TOPICAL PATCH TD SCH (10:22)
[2019-08-04] MEDS: SUVOREXANT 10 MG TABLET PO PRN (21:22)
[2019-08-04] MEDS: MELATONIN 5 MG TABLETS PO SCH (21:22)
[2019-08-04] MEDS: QUEtiapine FUMARATE 100 MG TABLET (FP) PO SCH (21:22)
[2019-08-04] MEDS: THIAMINE HCL 100 MG TABLET (FP) PO SCH (21:23)
[2019-08-05] MEDS ORDERED: PT OWN MED DRAWER 7, Y5N ONE (03:10)
[2019-08-05] MEDS: IBUPROFEN 400 MG TABLET (FP) PO PRN ×2 (06:59→21:04)
[2019-08-05] MEDS: hydrOXYzine PAMOATE 25 MG CAPSULE (FP) PO PRN ×2 (06:59→21:04)
[2019-08-05] MEDS: AMINO ACIDS/PROTEIN HYDROLYS 30 ML LIQUID.PKT PO SCH ×2 (07:01→16:46)
[2019-08-05] MEDS: PRENATAL VITAMINS W/ FOLIC ACID TABLET (FP) PO SCH (09:50)
[2019-08-05] MEDS: NICOTINE 14 MG/24 HOURS TOPICAL PATCH TD SCH (09:50)
[2019-08-05] MEDS: QUEtiapine FUMARATE 100 MG TABLET (FP) PO SCH (21:04)
[2019-08-05] MEDS: THIAMINE HCL 100 MG TABLET (FP) PO SCH (21:04)
[2019-08-05] MEDS: MELATONIN 5 MG TABLETS PO SCH (21:05)
[2019-08-05] MEDS: SUVOREXANT 10 MG TABLET PO PRN (21:05)
[2019-08-06] MEDS: AMINO ACIDS/PROTEIN HYDROLYS 30 ML LIQUID.PKT PO SCH ×2 (07:49→18:03)
[2019-08-06] MEDS: PRENATAL VITAMINS W/ FOLIC ACID TABLET (FP) PO SCH (09:48)
[2019-08-06] MEDS: NICOTINE 14 MG/24 HOURS TOPICAL PATCH TD SCH (09:48)
[2019-08-06] MEDS: hydrOXYzine PAMOATE 25 MG CAPSULE (FP) PO PRN ×2 (09:49→21:05)
[2019-08-06] MEDS: IBUPROFEN 400 MG TABLET (FP) PO PRN ×2 (09:49→21:05)
--- NOTE | 2019-08-06 11:22 | PN ---
Psychiatric Progress Note Vital Signs: Vital Signs Period Temp Pulse Resp BP Sys/Balderas Pulse Ox Last 24 Hr 97.1 F 72 17-18 107/71 97-99 Date of Session: 08/06/19 Chief Complaint:: "I'm having vivid nightmares." HPI: Patient admitted to for opioid, cocaine, benzodiazepines, and nicotine dependence. Consultation ordered due to report of "vivid dreams." ROS: Patient is ambulatory with assistance from cane. Patient is alert +oriented x 3. Current Medications: Active Medications Generic Name Dose Route Start Last Admin Trade Name Freq PRN Reason Stop Dose Admin Acetaminophen 650 mg 07/26/19 12:05 07/31/19 21:28 Tylenol - PO 650 mg Q4H PRN Administration FEVER Al Hydroxide/Mg Hydroxide 30 ml 07/26/19 12:05 07/31/19 07:49 Mylanta Oral Suspension - PO 30 ml Q6H PRN Administration DYSPEPSIA Amino Acids 30 ml 08/03/19 17:30 08/06/19 07:49 Prosource No Carb Liquid Pkt PO Not Given BID@0800,1730 DEBI Eucalyptus/Menthol/Phenol/Sorbitol 1 each 07/26/19 12:05 Cepastat Lozenge - MM Q4H PRN SORE THROAT Guaifenesin 10 ml 07/26/19 12:05 Robitussin - PO Q6H PRN COUGH Hydroxyzine Pamoate 25 mg 07/26/19 12:07 08/06/19 09:49 Vistaril - PO 25 mg Q4HWA PRN Administration ANXIETY Ibuprofen 400 mg 07/26/19 12:05 08/06/19 09:49 Motrin - PO 400 mg Q6H PRN Administration Pain Level 4-6 Loperamide HCl 4 mg 07/26/19 12:05 Imodium - PO Q6H PRN DIARRHEA Magnesium Citrate 300 ml 07/26/19 12:05 Citroma - PO Q48H PRN CONSTIPATION Magnesium Hydroxide 30 ml 07/26/19 12:05 Milk Of Magnesia - PO DAILY PRN CONSTIPATION Melatonin 5 mg 07/26/19 22:00 08/05/19 21:05 Melatonin PO 5 mg HS DEBI Administration Nicotine 14 mg 07/27/19 10:00 08/06/19 09:48 Nicoderm Patch - TD Not Given DAILY DEBI Nicotine Polacrilex 2 mg 07/26/19 12:05 Nicorette Gum - BUC Q2H PRN NICOTINE REPLACEMENT RX Multivit/Folic Acid/Iron 1 tab 07/27/19 10:00 08/06/19 09:48 Vitamins (Sjr) - PO Not Given DAILY DEBI Pseudoephedrine/Triprolidine 1 combo 07/26/19 12:05 Actifed - PO TID PRN NASAL CONGESTION Quetiapine Fumarate 100 mg 07/26/19 22:00 08/05/19 21:04 Seroquel - PO 100 mg HS DEBI Administration Thiamine HCl 100 mg 07/26/19 22:00 08/05/19 21:04 Vitamin B1 - PO 100 mg HS DEBI Administration Medication(s) Change(s): Yes. 1) Will d/c seroquel 100mg. 2) Will order Seroquel 50mg HS. Current Side Effect: No Lab tests ordered: No Lab tests reviewed: Yes Provider note:: Patient reports sleeping well but states that he is having more dreams than usual. States that he is having vivid dreams although denies it being negative. Patient requesting for a lower dose of seroquel as he is thinks the seroquel 100mg is causing him to have more dreams then usual. Will d/c seroquel 100mg and will order seroquel 50mg HS. Verbal consent given. Total face to face time:: 25 Mental Status Exam - Mental Status Exam Alert and Oriented to: Time, Place, Person Cognitive Function: Good Patient Appearance: Well Groomed Mood: Hopeful Affect: Appropriate Patient Behavior: Appropriate, Cooperative Speech Pattern: Appropriate Voice Loudness: Normal Thought Process: Intact, Goal Oriented Thought Disorder: Not Present Hallucinations: Denies Suicidal Ideation: Denies Homicidal Ideation: Denies Insight/Judgement: Poor Sleep: Fair Appetite: Fair Muscle strength/Tone: Normal Gait/Station: Other (Walks with a cane.) Psychiatric Treatment Plan - Problem List (1) Cocaine use disorder Comment: . (2) History of attention deficit hyperactivity disorder (ADHD) Comment: .. (3) Insomnia Comment: Improved on a regimen of seroquel + belsomra. (4) Nicotine dependence Qualifiers: Nicotine product type: cigarettes Substance use status: in withdrawal Qualified Code(s): F17.213 - Nicotine dependence, cigarettes, with withdrawal Comment: .
[2019-08-06] MEDS: THIAMINE HCL 100 MG TABLET (FP) PO SCH (21:04)
[2019-08-06] MEDS: MELATONIN 5 MG TABLETS PO SCH (21:04)
[2019-08-06] MEDS: QUEtiapine FUMARATE 50 MG TABLET PO SCH (21:06)
[2019-08-07] MEDS: AMINO ACIDS/PROTEIN HYDROLYS 30 ML LIQUID.PKT PO SCH ×2 (07:11→17:49)
[2019-08-07] MEDS: PRENATAL VITAMINS W/ FOLIC ACID TABLET (FP) PO SCH (09:57)
[2019-08-07] MEDS: NICOTINE 14 MG/24 HOURS TOPICAL PATCH TD SCH (09:57)
--- NOTE | 2019-08-07 15:44 | PN ---
[facility] Progress Note Note: Psychiatric nurse Practitioner note: Belsomra 10mg renewed X3 days. Verbal consent given.
[2019-08-07] MEDS ORDERED: PT OWN MED DRAWER 7, Y5N ONE ×2 (17:28→19:16)
[2019-08-07] MEDS: IBUPROFEN 400 MG TABLET (FP) PO PRN (19:36)
[2019-08-07] MEDS: hydrOXYzine PAMOATE 25 MG CAPSULE (FP) PO PRN (19:36)
[2019-08-07] MEDS: MELATONIN 5 MG TABLETS PO SCH (21:10)
[2019-08-07] MEDS: QUEtiapine FUMARATE 50 MG TABLET PO SCH (21:10)
[2019-08-07] MEDS: SUVOREXANT 10 MG TABLET PO PRN (21:10)
[2019-08-07] MEDS: THIAMINE HCL 100 MG TABLET (FP) PO SCH (21:11)
[2019-08-08] MEDS: AMINO ACIDS/PROTEIN HYDROLYS 30 ML LIQUID.PKT PO SCH ×2 (07:03→17:17)
[2019-08-08] MEDS: PRENATAL VITAMINS W/ FOLIC ACID TABLET (FP) PO SCH (10:07)
[2019-08-08] MEDS: NICOTINE 14 MG/24 HOURS TOPICAL PATCH TD SCH (10:07)
[2019-08-08] MEDS ORDERED: PT OWN MED DRAWER 7, Y5N ONE (16:46)
[2019-08-08] MEDS: hydrOXYzine PAMOATE 25 MG CAPSULE (FP) PO PRN (19:47)
[2019-08-08] MEDS: IBUPROFEN 400 MG TABLET (FP) PO PRN (19:47)
[2019-08-08] MEDS: MELATONIN 5 MG TABLETS PO SCH (21:06)
[2019-08-08] MEDS: QUEtiapine FUMARATE 50 MG TABLET PO SCH (21:06)
[2019-08-08] MEDS: THIAMINE HCL 100 MG TABLET (FP) PO SCH (21:06)
[2019-08-08] MEDS: SUVOREXANT 10 MG TABLET PO PRN (21:07)
[2019-08-09] MEDS: AMINO ACIDS/PROTEIN HYDROLYS 30 ML LIQUID.PKT PO SCH (07:12)
[2019-08-09 07:24] VITALS: BP 100/60; PULSE 78; TEMP 98
[2019-08-09] MEDS ORDERED: MASKS NR ONE (08:53)
[2019-08-09] MEDS: hydrOXYzine PAMOATE 25 MG CAPSULE (FP) PO PRN (09:42)
[2019-08-09] MEDS: IBUPROFEN 400 MG TABLET (FP) PO PRN (09:42)
[2019-08-09] MEDS: PRENATAL VITAMINS W/ FOLIC ACID TABLET (FP) PO SCH (09:43)
[2019-08-09] MEDS: NICOTINE 14 MG/24 HOURS TOPICAL PATCH TD SCH (09:43)
--- NOTE | 2019-08-09 14:50 | DS ---
[facility] Rehab Discharge Summary - [facility] Rehab Discharge Summary Admission Date: 07/26/19 Discharge Date: 08/09/19 - History Present History: Cocaine dependence, Opioid dependence, Sedative dependence - Discharge Physical Exam Vital Signs: Vital Signs Temperature 98.0 F 08/09/19 07:22 Pulse Rate 78 08/09/19 07:22 Respiratory Rate 18 08/09/19 07:22 Blood Pressure 100/60 08/09/19 07:22 O2 Sat by Pulse Oximetry (%) 98 08/09/19 07:22 ROS: denies chest pain, shakes, sob, sweating, anxiety and opiod cravings at this time. PE alert and oriented x 3 skin warm and dry +perrla eoms intact bl ext no tremors, amb with cane denies SI/HI - Treatment Discharge Condition: Discharge condition good Hospital Course: Patient completed rehab today for opiod/bzo dependence. He attended group meetings, evaluated and treated by psych team and participated in 1:1 sessions with counselor. Patient is medically stable and denies SI/HI. After arranged for [facility] on 08/12/2019. Home Medications Medication Instructions Recorded Naloxone HCl [Narcan] 4 mg NS ASDIR PRN #1 spray 07/25/19 Quetiapine Fumarate [Seroquel -] 100 mg PO HS 07/26/19 - Medication Discharge Medications: Ambulatory Orders Naloxone HCl [Narcan] 4 mg NS ASDIR PRN #1 spray 07/25/19 Quetiapine Fumarate [Seroquel -] 100 mg PO HS 07/26/19 - Medication-Assisted Treatment (MAT) Medication-Assisted Treatment (MAT): No MAT Follow-up Referral: dorothea Smith 08/12/2019. - Discharge Instructions Diet, activity, other medical instructions: Diet: reg Activity: as tolerated Other medical instructions: f/u with pcp as recommended - Follow-up Referral Minutes to complete discharge: 40 - AMA Did Patient Leave Against Medical Advice: No
== END 2019-08-09 14:53 | disposition home or self-care (01) | DRG 772 ==
LOC: YASAS 10:38 → Y3W 10:39 → Y3E 08-04 13:06
PROVIDERS: ADMIT Allergy & Immunology; ATTEND Allergy & Immunology
PROC: HZ42ZZZ Group Counseling for Substance Abuse Treatment, Cognitive-Behavioral (ICD-10-PCS; principal; 2019-07-26)
DX: F11.20 Opioid dependence, uncomplicated (principal); F13.20 Sedative, hypnotic or anxiolytic dependence, uncomplicated; F14.20 Cocaine dependence, uncomplicated; F17.213 Nicotine dependence, cigarettes, with withdrawal; F19.24 Other psychoactive substance dependence with psychoactive substance-induced mood disorder; F90.9 Attention-deficit hyperactivity disorder, unspecified type; G47.00 Insomnia, unspecified; E46 Unspecified protein-calorie malnutrition; Z68.1 Body mass index [BMI] 19.9 or less, adult; K08.9 Disorder of teeth and supporting structures, unspecified; B18.2 Chronic viral hepatitis C; R26.2 Difficulty in walking, not elsewhere classified; Z99.89 Dependence on other enabling machines and devices; Z91.14 Patient's other noncompliance with medication regimen; Z86.59 Personal history of other mental and behavioral disorders; Z56.0 Unemployment, unspecified

== ENCOUNTER 2019-09-27 11:44 | Inpatient (IN) | payer OTHER ==
--- NOTE | 2019-09-27 12:21 | BHS.RME ---
Substance Use & Tx History - Substance Use History Heroin Substance amount: 6 bags Frequency of use: Daily Substance route: Inhalation (ex: sniffing or snorting), Injection (ex: intravenous or skin popping) Date of Last Use: 09/26/19 Cocaine- Powder Substance amount: 1 bag Frequency of use: Less than 3 times per week Substance route: Injection (ex: intravenous or skin popping) Date of Last Use: 09/24/19 Nicotine Substance amount: 1/2 pack Frequency of use: Daily Substance route: Smoking Date of Last Use: 09/27/19 - Last Treatment Date of last treatment: 07/20-07/26/19 Treatment type: Substance Use Disorder (JANAK) Where was last treatment: Detox Physical/Psych/Mental Status - Behavior General Behavior: Increased activity (restlessness, agitation) Eye Contact: Normal - Cooperativeness Cooperativeness: Cooperative - Thinking Thought Processes: Tight, Logical, Goal Directed - Physical Health Problems Is patient presently having any pain?: No Does patient presently have any injuries (include location): No Does patient currently have a fever: No Is patient : No COWS - Scale Resting Pulse: 0= [place] 80 or Below Sweatin= Beads of Sweat on Face Restless Observation: 1= Difficult to Sit Still Pupil Size: 1= Pupils >than Normal Bone or Joint Aches: 1= Mild Discomfort Runny Nose/ Eye Tearin= Runny Nose/Eyes GI Upset > 30mins: 2= Nausea/Diarrhea Tremor Observation: 2= Slight Tremor Visible Yawning Observation: 0= None Anxiety or Irritability: 0= None Goose Flesh Skin: 3=Piloerection COWS Score: 15
[2019-09-27 12:56] VITALS: BMI 18.0
--- NOTE | 2019-09-27 13:19 | HP ---
COWS - Scale Resting Pulse: 0= [place] 80 or Below Sweatin= Beads of Sweat on Face Restless Observation: 1= Difficult to Sit Still Pupil Size: 1= Pupils >than Normal Bone or Joint Aches: 1= Mild Discomfort Runny Nose/ Eye Tearin= Runny Nose/Eyes GI Upset > 30mins: 2= Nausea/Diarrhea Tremor Observation: 2= Slight Tremor Visible Yawning Observation: 0= None Anxiety or Irritability: 0= None Goose Flesh Skin: 3=Piloerection COWS Score: 15 CIWA Score - Admission Criteria OASAS Guidelines: Admission for Medically Managed Detox: Requires at least one of the followin. CIWA greater than 12 2. Seizures within the past 24 hours 3. Delirium tremens within the past 24 hours 4. Hallucinations within the past 24 hours 5. Acute intervention needed for co occurring medical disorder 6. Acute intervention needed for co occurring psychiatric disorder 7. Severe withdrawal that cannot be handled at a lower level of care (continued vomiting, continued diarrhea, abnormal vital signs) requiring intravenous medication and/or fluids 8. Admitting History and Physical - Admission Chief Complaint: " I need help in stopping and I relapsed due to not being able to get into an outpatient program at [facility] though I tried to get in there 3 appointments." History of Present Illness: 24 year old male with history of opioid dependence and cocaine use disorder, and nicotine dependence seeking detox and rehab and then referral for outpatient program. He was last here in 07/20- completed detox and then and completed rehab and then referred out. Substance Use & Tx History - Substance Use History Heroin Substance amount: 6 bags Frequency of use: Daily Substance route: Inhalation (ex: sniffing or snorting), Injection (ex: intravenous or skin popping) Date of Last Use: 09/26/19 He has overdosed in the past and does not have narcan Cocaine- Powder Substance amount: 1 bag Frequency of use: Less than 3 times per week Substance route: Injection (ex: intravenous or skin popping) Date of Last Use: 09/24/19 Nicotine Substance amount: 1/2 pack Frequency of use: Daily Substance route: Smoking Date of Last Use: 09/27/19 - Last Treatment Date of last treatment: 07/20-07/26/19 Treatment type: Substance Use Disorder (JANAK) Where was last treatment: Detox PMH: GERD and Seizures related to Xanax withdrawal Psurg: R femoral fracture Psych: ADHD Bipolar Homeless and not good recovery environment. He meets criteria for detox as he multiple medical and psychiatric co- morbidities History Source: Patient Limitations to Obtaining History: No Limitations - Past Surgical History Additional Past Surgical History: Right femoral fracture - Smoking History Smoking history: Current every day smoker Have you smoked in the past 12 months: Yes Aproximately how many cigarettes per day: 20 - Alcohol/Substance Use Hx Alcohol Use: No History of Substance Use: reports: Cocaine, Heroin - Social History Usual Living Arrangement: Yes: Alone Do you think of yourself as: Straight/Heterosexual ADL: Independent Occupation: unemployed History of Recent Travel: No Admission [facility] Allergies/Adverse Reactions: Allergies Allergy/AdvReac Type Severity Reaction Status Date / Time No Known Allergies Allergy Verified 06/10/16 21:20 Exam Limitations: No Limitations - Ebola screening Have you traveled outside of the country in the last 21 days: No Have you had contact with anyone from an Ebola affected area: No Have you been sick,other than usual withdrawal symptoms: No Do you have a fever: No - Review of Systems Constitutional: Chills EENT: reports: No Symptoms Reported Respiratory: reports: No Symptoms reported Cardiac: reports: No Symptoms Reported GI: reports: No Symptoms Reported : reports: No Symptoms Reported Musculoskeletal: reports: No Symptoms Reported Integumentary: reports: No Symptoms Reported Neuro: reports: No Symptoms reported Endocrine: reports: No Symptoms Reported Hematology: reports: No Symptoms Reported Psychiatric: reports: Judgement Intact, Mood/Affect Appropiate, Orientated x3, Agitated, Anxious Other Systems: Reviewed and Negative Patient History - Patient Medical History Hx Anemia: No Hx Asthma: No Hx Chronic Obstructive Pulmonary Disease (COPD): No Hx Cancer: No Hx Cardiac Disorders: No Hx Congestive Heart Failure: No Hx Hypertension: No Hx Hypercholesterolemia: No Hx Pacemaker: No HX Cerebrovascular Accident: No Hx Seizures: Yes (Related to Xanax withdrawal 2015) Hx Dementia: No Hx Diabetes: No Hx Gastrointestinal Disorders: Yes Hx Liver Disease: No Hx Genitourinary Disorders: No Hx Sexually Transmitted Disorders: No Hx Renal Disease (ESRD): No Hx Thyroid Disease: No Hx Human Immunodeficiency Virus (HIV): No Hx Hepatitis C: Yes (Not treated) Hx Depression: No Hx Suicide Attempt: No Hx Bipolar Disorder: No Hx Schizophrenia: No - Patient Surgical History Past Surgical History: Yes Hx Neurologic Surgery: No Hx Cataract Extraction: No Hx Cardiac Surgery: No Hx Lung Surgery: No Hx Breast Surgery: No Hx Breast Biopsy: No Hx Abdominal Surgery: No Hx Appendectomy: No Hx Cholecystectomy: No Hx Genitourinary Surgery: No Hx Section: No Hx Orthopedic Surgery: Yes (Right femur 2018) Anesthesia Reaction: No - PPD History Date: 07/24/19 Results: 0mm - Smoking Cessation Smoking history: Current every day smoker Have you smoked in the past 12 months: Yes Aproximately how many cigarettes per day: 20 Cigars Per Day: 0 Hx Chewing Tobacco Use: No Initiated information on smoking cessation: Yes 'Breaking Loose' booklet given: 09/27/19 - Substances abused Heroin Substance route: Injection Frequency: 3-6 times per week Amount used: $ 50 Age of first use: 19 Date of last use: 09/26/19 Cocaine Substance route: Inhalation Frequency: 1-2 times per week Amount used: $10 Age of first use: 16 Date of last use: 09/24/19 Admission Physical Exam BHS - Vital Signs Vital Signs: Vital Signs - 24 hr 09/27/19 12:46 Temperature 97 F L Pulse Rate 59 L Respiratory 19 Rate Blood Pressure 123/79 - Physical General Appearance: Yes: No Apparent Distress, Nourished, Appropriately Dressed HEENTM: Yes: EOMI, Hearing grossly Normal, Normal ENT Inspection, Normocephalic, Normal Voice, DANELLE, Pharynx Normal, Tm's normal Respiratory: Yes: Chest Non-Tender, Lungs Clear, Normal Breath Sounds, No Respiratory Distress, No Accessory Muscle Use Neck: Yes: No masses,lesions,Nodules, Supple, Trachea in good position Breast: Yes: Within Normal Limits Cardiology: Yes: Regular Rhythm, Regular Rate, S1, S2 Abdominal: Yes: Normal Bowel Sounds, Non Tender, Flat, Soft Genitourinary: Yes: Within Normal Limits Back: Yes: Normal Inspection Musculoskeletal: Yes: full range of Motion, Gait Steady, Pelvis Stable Extremities: Yes: Normal Capillary Refill, Normal Inspection, Normal Range of Motion, Non-Tender Neurological: Yes: assistant director of 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 (3) Weight loss Status: Acute (4) ADHD (attention deficit hyperactivity disorder) Current Visit: Yes Status: Chronic Qualifiers: Attention deficit-hyperactivity disorder type: unspecified Qualified Code(s): F90.9 - Attention-deficit hyperactivity disorder, unspecified type (5) Bipolar disorder Current Visit: Yes Status: Chronic Qualifiers: Most recent bipolar episode type: most recent episode unspecified type (6) Cocaine use disorder Current Visit: Yes Status: Chronic Comment: . (7) GERD (gastroesophageal reflux disease) Current Visit: Yes Status: Chronic Qualifiers: Esophagitis presence: esophagitis presence not specified Qualified Code(s): K21.9 - Gastro-esophageal reflux disease without esophagitis (8) Hepatitis C antibody test positive Current Visit: No Status: Chronic (9) Nicotine dependence Current Visit: Yes Status: Chronic Qualifiers: Nicotine product type: cigarettes Substance use status: in withdrawal Qualified Code(s): F17.213 - Nicotine dependence, cigarettes, with withdrawal Comment: . Cleared for Admission [facility] - Detox or Rehab [facility] Level of Care: Medically Managed Detox Regimen/Protocol: Methadone Claeared for Rehab Admission: No Screened but not Admitted - Documentation of Visit Screened but not Admitted: No Breathalyzer - Breathalyzer Breathalyzer: 0 Vital Signs - Vital Signs Vital signs refused: No Temperature: 97.0 F Temperature source: Oral Pulse Rate: 59 Respiratory Rate: 19 Blood Pressure: 123/79 BP Location: Left Arm Blood Pressure position: Sitting - Height Height: 6 ft 6 in - Weight Weight: 156 lb Weight measurement method: Standing scale - BMI Body Mass Index (BMI): 18.0 - Bowel Function Bowel Movement: No Urine Drug Screen - Test Device Lot number: [id number] Expiration date: 09/13/21 - Control Is test valid?: Yes - Results Drug screen NEGATIVE: No Urine drug screen results: ALLEN-Cocaine, FEN-Fentanyl, MOP-Opiates Inpatient Rehab Admission - Rehab Decision to Admit Inpatient rehab admission?: No
[2019-09-27] MEDS ORDERED: MAGNESIUM CITRATE 300 ML BOTTLE PO PRN (13:28)
[2019-09-27] MEDS ORDERED: ACETAMINOPHEN 325 MG TABLET (FP) PO PRN ×2 (13:28)
[2019-09-27] MEDS ORDERED: MENTHOL/PHENOL 1 EACH UD MM PRN (13:28)
[2019-09-27] MEDS ORDERED: BISMUTH SUBSALICYLATE 524 MG/30 ML UD PO PRN (13:28)
[2019-09-27] MEDS ORDERED: MAGNESIUM HYDROX 2400MG/30ML ORAL SUSPENSION 30 ML CUP PO PRN (13:28)
[2019-09-27] MEDS ORDERED: MAG HYDROX/AL HYDROX/SIMETH 30 ML UNIT-DOSE CUP PO PRN (13:28)
[2019-09-27] MEDS ORDERED: NICOTINE POLACRILEX 2 MG GUM BUC PRN (13:28)
[2019-09-27] MEDS ORDERED: cloNIDine HCL 0.1 MG TABLET PO PRN (13:28)
[2019-09-27] MEDS ORDERED: ONDANSETRON *ODT* 4 MG TABLET SL ONE (14:00)
[2019-09-27] MEDS ORDERED: METHADONE HCL 10 MG TABLET (FOR DETOX USE ONLY) PO ONE (14:00)
[2019-09-27] MEDS: hydrOXYzine PAMOATE 25 MG CAPSULE (FP) PO SCH ×3 (14:15→22:16)
[2019-09-27] MEDS: PRENATAL VITAMINS W/ FOLIC ACID TABLET (FP) PO SCH (14:17)
[2019-09-27] MEDS: NICOTINE 7 MG/24 HOURS TOPICAL PATCH TD SCH (14:17)
[2019-09-27 16:03] LABS: HEMATOCRIT 34.2 % (35.4-49); HEMOGLOBIN 11.4 GM/dL (11.7-16.9); MCH 29.4 pg (25.7-33.7); MCHC 33.2 g/dl (32.0-35.9); MEAN CELL VOLUME 88.5 fl (80-96); MEAN PLT VOLUME 8.9 fl (7.5-11.1); PLATELET COUNT 231 K/MM3 (134-434); RBC 3.87 M/mm3 (4.00-5.60); RDW 14.4 % (11.9-15.9); WHITE BLOOD COUNT 4.6 K/mm3 (4.0-10.0)
[2019-09-27 16:09] LABS: ALBUMIN 3.8 g/dl (3.4-5.0); BILIRUBIN,TOTAL 0.3 mg/dL (0.2-1); BLOOD UREA NITROGEN 9.7 mg/dL (7-18); CALCIUM 8.9 mg/dL (8.5-10.1); CREATININE 0.8 mg/dL (0.55-1.3); POTASSIUM 4.6 mmol/L (3.5-5.1); TOT PROT 7.7 g/dl (6.4-8.2)
[2019-09-27] MEDS: MELATONIN 5 MG TABLETS PO SCH (22:16)
[2019-09-27] MEDS: THIAMINE HCL 100 MG TABLET (FP) PO SCH (22:16)
[2019-09-28] MEDS: hydrOXYzine PAMOATE 25 MG CAPSULE (FP) PO SCH ×5 (06:39→21:17)
[2019-09-28] MEDS ORDERED: METHADONE HCL 10 MG TABLET (FOR DETOX USE ONLY) ONE (09:43)
[2019-09-28] MEDS ORDERED: METHADONE HCL 5 MG TABLET (FOR DETOX USE ONLY) ONE (09:43)
[2019-09-28] MEDS ORDERED: METHADONE (DETOX) 20 MG, METHADONE (DETOX) 5 MG PO ONE (10:00)
[2019-09-28] MEDS: PRENATAL VITAMINS W/ FOLIC ACID TABLET (FP) PO SCH (10:13)
[2019-09-28] MEDS: NICOTINE 7 MG/24 HOURS TOPICAL PATCH TD SCH (10:13)
--- NOTE | 2019-09-28 11:15 | CONSULT ---
[facility] Psychiatric Consult - Data Date of interview: 09/28/19 Admission source: [facility] Identifying data: Patient is a 24 year old single male, without children, unemployed, resides in a [place], and is not currently receiving financial assistance. This is one of multiple admissions for patient. Patient admitted to for opiate dependence. Substance Abuse History: Smoking Cessation. Smoking history: Current every day smoker. Have you smoked in the past 12 months: Yes. Aproximately how many cigarettes per day: 20. Cigars Per Day: 0. Hx Chewing Tobacco Use: No. Initiated information on smoking cessation: Yes. 'Breaking Loose' booklet given : 09/27/19. - Substances abused. Heroin. Substance route: Injection. Frequency: 3-6 times per week. Amount used: $ 50. Age of first use: 19. Date of last use: 09/26/19. Cocaine. Substance route: Inhalation. Frequency: 1- 2 times per week. Amount used: $10. Age of first use: 16. Date of last use: 09/24/19 Medical History: Medical profile is remarkable for hepatitis C (untreated), GERD, antecedent of orthosurgery (right leg) and recent history (couple of weeks ago, as per self-report) of accidental fall in the streets. History of alcohol syndrome. Psychiatric History: Mr. Ham reports history of three psychiatric hospitalizations ([facility] + [facility]) and most recently last year in January of 2019 at [facility] due to depression. History of one accidental overdose with xanax. Reports past diagnsis of MDD and ADHD. Mr. Ham is totally lost in follow up care. Patient reports taking seroquel, trazodone, or remeron for insomnia when admitted to detox/rehab facilites. Patient seen by Dr. Edouard in July of 2019 and was prescribed Seroquel 100mg HS + Belsomra 10mg HS with favorable effects. At present patient reports difficulty sleeping. Physical/Sexual Abuse/Trauma History: denies. Mental Status Exam - Mental Status Exam Alert and Oriented to: Time, Place, Person Cognitive Function: Good Patient Appearance: Well Groomed Mood: Hopeful Affect: Appropriate Patient Behavior: Cooperative Speech Pattern: Appropriate Voice Loudness: Normal Thought Process: Intact, Goal Oriented Thought Disorder: Not Present Hallucinations: Denies Suicidal Ideation: Denies Homicidal Ideation: Denies Insight/Judgement: Poor Sleep: Poorly Appetite: Fair Muscle strength/Tone: Normal Gait/Station: Normal Psychiatric Findings - Problem List ([place] 1, 2,3) (1) Opioid dependence with withdrawal Status: Acute Comment: . (2) ADHD (attention deficit hyperactivity disorder) Status: Chronic Qualifiers: Attention deficit-hyperactivity disorder type: unspecified Qualified Code(s): F90.9 - Attention-deficit hyperactivity disorder, unspecified type (3) Cocaine use disorder Status: Chronic Comment: . (4) Substance-induced sleep disorder Status: Acute (5) Substance induced mood disorder Status: Chronic Comment: . - Initial Treatment Plan Initial Treatment Plan: Psychoeducation provided. Detoxification in progress. Will order Seroquel 100mg HS + Belsomra 10mg HS PRN. Benefits and side effects discussed. Verbal consent given.
--- NOTE | 2019-09-28 11:53 | PN ---
BHS COWS - Scale Resting Pulse: 0= [place] 80 or Below Sweatin= Chills/Flushing Restless Observation: 0= Sits Still Pupil Size: 1= Pupils >than Normal Bone or Joint Aches: 1= Mild Discomfort Runny Nose/ Eye Tearin= None GI Upset > 30mins: 2= Nausea/Diarrhea Tremor Observation of Outstretched Hands: 2= Slight Tremor Visible Yawning Observation: 0= None Anxiety or Irritability: 2=Irritable/Anxious Goose Flesh Skin: 3=Piloerection COWS Score: 12 BHS Progress Note (SOAP) Subjective: 24 years old male admitted on 09/27/19 for opiate withdrawal sx management treating with methadone detox regiment feels chile sweat and stomach cramping bentyl 20 mg po x 1 seen by psychiatrist possible resume seroqual / trazodone / remeron Objective: 09/28/19 11:59 Vital Signs - 24 hr 09/27/19 09/27/19 09/27/19 12:46 13:28 14:09 Temperature 97 F L 97.0 F L 96.9 F L Pulse Rate 59 L 59 L 59 L Respiratory 19 19 18 Rate Blood Pressure 123/79 123/79 116/82 O2 Sat by Pulse 100 Oximetry (%) 09/27/19 09/27/19 09/28/19 16:49 20:41 06:13 Temperature 97.1 F L 97.3 F L 97.3 F L Pulse Rate 58 L 69 60 Respiratory 18 18 18 Rate Blood Pressure 117/78 126/74 98/58 L O2 Sat by Pulse 95 99 Oximetry (%) 09/28/19 08:52 Temperature 96.8 F L Pulse Rate 54 L Respiratory 18 Rate Blood Pressure 100/61 O2 Sat by Pulse Oximetry (%) Laboratory Tests 09/27/19 09/27/19 09/27/19 13:10 13:15 13:15 WBC 4.6 RBC 3.87 L Hgb 11.4 L Hct 34.2 L MCV 88.5 MCH 29.4 MCHC 33.2 RDW 14.4 Plt Count 231 MPV 8.9 D Sodium 139 Potassium 4.6 Chloride 105 Carbon Dioxide 26 Anion Gap 8 BUN 9.7 Creatinine 0.8 Est GFR (CKD-EPI)AfAm 143.90 Est GFR (CKD-EPI)NonAf 124.16 Random Glucose 101 Calcium 8.9 Total Bilirubin 0.3 AST 21 ALT 26 Alkaline Phosphatase 97 Total Protein 7.7 Albumin 3.8 Syphilis Serology COVID-19 (CYNDI) Not detected 09/27/19 13:15 WBC RBC Hgb Hct MCV MCH MCHC RDW Plt Count MPV Sodium Potassium Chloride Carbon Dioxide Anion Gap BUN Creatinine Est GFR (CKD-EPI)AfAm Est GFR (CKD-EPI)NonAf Random Glucose Calcium Total Bilirubin AST ALT Alkaline Phosphatase Total Protein Albumin Syphilis Serology Non-reactive COVID-19 (CYNDI) lab noted Assessment: 09/28/19 12:00 opiate withdrawal Plan: methadone regiment
[2019-09-28] MEDS ORDERED: PNEUMOC 13-VAL CONJ-DIP CRM/PF 0.5 ML DISP.SYRIN IM ONE (12:00)
[2019-09-28] MEDS ORDERED: DICYCLOMINE HCL 10 MG CAPSULE PO ONE (12:15)
[2019-09-28] MEDS: IBUPROFEN 400 MG TABLET (FP) PO PRN (13:48)
--- NOTE | 2019-09-28 18:36 | PN ---
[facility] Progress Note Note: CALLED BY NURSING FOR PT W/ LOWER EXTREMITY WOUNDS . NO CHART DOCUMENTATION FOUND . PT CACHECTIC , OBSERVED WITH UNSTEADY GAIT , LIMPING RIGHT . PT DENIES PAIN . UPON EXAMINATION , RIGHT KNEE WITH LARGE DEFORMITY , UNABLE TO FULLY EXTEND RIGHT KNEE , DECREASED FLEXION . PT IS S/P RIGHT FEMUR FRX W/ ORIF IN 2017 AND REVISION W/ REMOVAL OF HARDWARE IN MARCH 2019 , PLANNED REVISION AND BONE GRAFT PENDING . PT WITH RIGHT ANTERIOR TIBIAL LARGE NON-HEALING ULCER ( X 2 YEARS , PER PT ) WITH YELLOWISH D/C AND NUMEROUS EXCORIATIONS OF THE RIGHT LOWER EXTREMITY , BLEEDING PROFUSELY . ALSO NOTED RIGHT SUPRAORBITAL EXCORIATION AND RIGHT SIDE OF CHIN EXCORIATION ( DEEP ) WITH SCARRING , LEFT FOREARM EXCORIATION ,LEFT LATERAL CALF EXCORIATION , RIGHT POPLITEAL EXCORIATION , RIGHT SURGICAL SCAR EXCORIATION . PT ADMITS TO PICKING SCARS . TRACK PRICE NOTED FROM IV USE IN NIK UE , C/D/I . DISCUSSED W/ PT AT LENGTH RISK OF SEPSIS . WOUND CARE ORDERED . NURSING AWARE . Vital Signs - 24 hr 09/27/19 09/28/19 09/28/19 20:41 06:13 08:52 Temperature 97.3 F L 97.3 F L 96.8 F L Pulse Rate 69 60 54 L Respiratory 18 18 18 Rate Blood Pressure 126/74 98/58 L 100/61 O2 Sat by Pulse 95 99 Oximetry (%) 09/28/19 09/28/19 13:27 16:48 Temperature 96.6 F L 97.1 F L Pulse Rate 62 50 L Respiratory 18 18 Rate Blood Pressure 118/75 100/51 L O2 Sat by Pulse 99 99 Oximetry (%)
[2019-09-28] MEDS: QUEtiapine FUMARATE 100 MG TABLET (FP) PO SCH (21:17)
[2019-09-28] MEDS: MELATONIN 5 MG TABLETS PO SCH (21:18)
[2019-09-28] MEDS: BACITRACIN 0.9 GM PACKET TP SCH ×3 (21:18→22:46)
[2019-09-28] MEDS: THIAMINE HCL 100 MG TABLET (FP) PO SCH (22:26)
[2019-09-29] MEDS: hydrOXYzine PAMOATE 25 MG CAPSULE (FP) PO SCH ×5 (07:05→21:17)
[2019-09-29] MEDS: METHOCARBAMOL 500 MG TABLET PO PRN (09:42)
[2019-09-29] MEDS: NICOTINE 7 MG/24 HOURS TOPICAL PATCH TD SCH (09:43)
[2019-09-29] MEDS: PRENATAL VITAMINS W/ FOLIC ACID TABLET (FP) PO SCH (09:43)
[2019-09-29] MEDS: BACITRACIN 0.9 GM PACKET TP SCH ×4 (09:44→21:15)
[2019-09-29] MEDS ORDERED: METHADONE HCL 10 MG TABLET (FOR DETOX USE ONLY) PO ONE (10:00)
--- NOTE | 2019-09-29 15:49 | PN ---
BHS COWS - Scale Resting Pulse: 0= [place] 80 or Below Sweatin= Chills/Flushing Restless Observation: 0= Sits Still Pupil Size: 1= Pupils >than Normal Bone or Joint Aches: 1= Mild Discomfort Runny Nose/ Eye Tearin= Nasal Congestion GI Upset > 30mins: 1= Stomach Cramp Tremor Observation of Outstretched Hands: 2= Slight Tremor Visible Yawning Observation: 0= None Anxiety or Irritability: 2=Irritable/Anxious Goose Flesh Skin: 0=Smooth Skin COWS Score: 9 BHS Progress Note (SOAP) Subjective: 24 years old male was admitted on 09/27/19 for opiate withdrawal sx management treating with methadone detox regiment right anterior mid tibia chronic wound 3 cm long with 1 cm mid point skin opening dressing change as per physician instruction Objective: 09/29/19 16:00 Vital Signs - 24 hr 09/28/19 09/28/19 09/29/19 16:48 20:34 05:27 Temperature 97.1 F L 97.1 F L 98.2 F Pulse Rate 50 L 85 56 L Respiratory 18 18 20 Rate Blood Pressure 100/51 L 95/57 L 110/64 O2 Sat by Pulse 99 100 99 Oximetry (%) 09/29/19 09/29/19 08:47 12:34 Temperature 97.3 F L 97.3 F L Pulse Rate 52 L 67 Respiratory 18 18 Rate Blood Pressure 98/60 107/64 O2 Sat by Pulse 100 Oximetry (%) Laboratory Tests 09/27/19 09/27/19 09/27/19 13:10 13:15 13:15 WBC 4.6 RBC 3.87 L Hgb 11.4 L Hct 34.2 L MCV 88.5 MCH 29.4 MCHC 33.2 RDW 14.4 Plt Count 231 MPV 8.9 D Sodium 139 Potassium 4.6 Chloride 105 Carbon Dioxide 26 Anion Gap 8 BUN 9.7 Creatinine 0.8 Est GFR (CKD-EPI)AfAm 143.90 Est GFR (CKD-EPI)NonAf 124.16 Random Glucose 101 Calcium 8.9 Total Bilirubin 0.3 AST 21 ALT 26 Alkaline Phosphatase 97 Total Protein 7.7 Albumin 3.8 Syphilis Serology COVID-19 (CYNDI) Not detected 09/27/19 13:15 WBC RBC Hgb Hct MCV MCH MCHC RDW Plt Count MPV Sodium Potassium Chloride Carbon Dioxide Anion Gap BUN Creatinine Est GFR (CKD-EPI)AfAm Est GFR (CKD-EPI)NonAf Random Glucose Calcium Total Bilirubin AST ALT Alkaline Phosphatase Total Protein Albumin Syphilis Serology Non-reactive COVID-19 (CYNDI) lab noted Assessment: 09/29/19 16:00 opiate withdrawal Plan: methadone regiment
[2019-09-29] MEDS: IBUPROFEN 400 MG TABLET (FP) PO PRN (18:59)
[2019-09-29] MEDS: MELATONIN 5 MG TABLETS PO SCH (21:17)
[2019-09-29] MEDS: QUEtiapine FUMARATE 100 MG TABLET (FP) PO SCH (21:17)
[2019-09-29] MEDS: SUVOREXANT 10 MG TABLET PO PRN (21:18)
[2019-09-29] MEDS: THIAMINE HCL 100 MG TABLET (FP) PO SCH (21:20)
[2019-09-30] MEDS: hydrOXYzine PAMOATE 25 MG CAPSULE (FP) PO SCH ×5 (07:00→21:07)
[2019-09-30] MEDS ORDERED: METHADONE HCL 5 MG TABLET (FOR DETOX USE ONLY) ONE (09:03)
[2019-09-30] MEDS ORDERED: METHADONE HCL 10 MG TABLET (FOR DETOX USE ONLY) ONE (09:03)
[2019-09-30] MEDS: PRENATAL VITAMINS W/ FOLIC ACID TABLET (FP) PO SCH (09:45)
[2019-09-30] MEDS: METHOCARBAMOL 500 MG TABLET PO PRN (09:45)
[2019-09-30] MEDS: NICOTINE 7 MG/24 HOURS TOPICAL PATCH TD SCH (09:47)
[2019-09-30] MEDS: BACITRACIN 0.9 GM PACKET TP SCH ×4 (09:47→21:07)
[2019-09-30] MEDS ORDERED: METHADONE (DETOX) 10 MG, METHADONE (DETOX) 5 MG PO ONE (10:00)
--- NOTE | 2019-09-30 15:44 | PN ---
BHS COWS - Scale Resting Pulse: 0= [place] 80 or Below Sweatin= Chills/Flushing Restless Observation: 0= Sits Still Pupil Size: 1= Pupils >than Normal Bone or Joint Aches: 1= Mild Discomfort Runny Nose/ Eye Tearin= None GI Upset > 30mins: 1= Stomach Cramp Tremor Observation of Outstretched Hands: 1= Tremor Bliss, Not Seen Yawning Observation: 0= None Anxiety or Irritability: 2=Irritable/Anxious Goose Flesh Skin: 0=Smooth Skin COWS Score: 7 BHS Progress Note (SOAP) Subjective: 24 years old male was admitted on 09/27/19 for opiate withdrawal sx management treating with methadone detox regiment right leg chronic self inflicted would x 1+ years emphasize hand washing and avoid irritation to the area Objective: 09/30/19 15:41 Vital Signs - 24 hr 09/29/19 09/29/19 09/30/19 16:44 20:40 06:37 Temperature 98.2 F 97.3 F L 96.9 F L Pulse Rate 45 L 60 50 L Respiratory 18 18 18 Rate Blood Pressure 84/49 L 109/59 L 98/62 O2 Sat by Pulse 100 100 100 Oximetry (%) 09/30/19 09/30/19 08:57 12:34 Temperature 96.8 F L 97.1 F L Pulse Rate 60 58 L Respiratory 18 18 Rate Blood Pressure 98/60 127/71 O2 Sat by Pulse 99 Oximetry (%) Laboratory Tests 09/27/19 09/27/19 09/27/19 13:10 13:15 13:15 WBC 4.6 RBC 3.87 L Hgb 11.4 L Hct 34.2 L MCV 88.5 MCH 29.4 MCHC 33.2 RDW 14.4 Plt Count 231 MPV 8.9 D Sodium 139 Potassium 4.6 Chloride 105 Carbon Dioxide 26 Anion Gap 8 BUN 9.7 Creatinine 0.8 Est GFR (CKD-EPI)AfAm 143.90 Est GFR (CKD-EPI)NonAf 124.16 Random Glucose 101 Calcium 8.9 Total Bilirubin 0.3 AST 21 ALT 26 Alkaline Phosphatase 97 Total Protein 7.7 Albumin 3.8 Syphilis Serology COVID-19 (CYNDI) Not detected 09/27/19 13:15 WBC RBC Hgb Hct MCV MCH MCHC RDW Plt Count MPV Sodium Potassium Chloride Carbon Dioxide Anion Gap BUN Creatinine Est GFR (CKD-EPI)AfAm Est GFR (CKD-EPI)NonAf Random Glucose Calcium Total Bilirubin AST ALT Alkaline Phosphatase Total Protein Albumin Syphilis Serology Non-reactive COVID-19 (CYNDI) lab noted Assessment: 09/30/19 15:42 opiate withdrawal Plan: methadone regiment
[2019-09-30] MEDS: IBUPROFEN 400 MG TABLET (FP) PO PRN (17:21)
[2019-09-30] MEDS: QUEtiapine FUMARATE 100 MG TABLET (FP) PO SCH (21:07)
[2019-09-30] MEDS: THIAMINE HCL 100 MG TABLET (FP) PO SCH (21:07)
[2019-09-30] MEDS: MELATONIN 5 MG TABLETS PO SCH (21:08)
[2019-09-30] MEDS: SUVOREXANT 10 MG TABLET PO PRN (21:08)
[2019-10-01] MEDS: hydrOXYzine PAMOATE 25 MG CAPSULE (FP) PO SCH ×5 (07:14→21:53)
[2019-10-01] MEDS ORDERED: METHADONE HCL 10 MG TABLET (FOR DETOX USE ONLY) PO ONE (10:00)
[2019-10-01] MEDS: IBUPROFEN 400 MG TABLET (FP) PO PRN ×2 (10:29→18:18)
[2019-10-01] MEDS: NICOTINE 7 MG/24 HOURS TOPICAL PATCH TD SCH (10:30)
[2019-10-01] MEDS: PRENATAL VITAMINS W/ FOLIC ACID TABLET (FP) PO SCH (10:30)
[2019-10-01] MEDS: BACITRACIN 0.9 GM PACKET TP SCH ×4 (10:30→22:57)
--- NOTE | 2019-10-01 11:44 | PN ---
S COWS - Scale Resting Pulse: 0= [place] 80 or Below Sweatin= No chills or Flushing Restless Observation: 0= Sits Still Pupil Size: 0= Normal to Room Light Bone or Joint Aches: 2= Severe Diffuse Aches Runny Nose/ Eye Tearin= None GI Upset > 30mins: 0= None Tremor Observation of Outstretched Hands: 0= None Yawning Observation: 0= None Anxiety or Irritability: 2=Irritable/Anxious Goose Flesh Skin: 0=Smooth Skin COWS Score: 4 BHS Progress Note (SOAP) Subjective: c/o mild withdrawal symptoms. Objective: 10/01/19 11:42 Vital Signs 10/01/19 10/01/19 06:43 08:59 Temperature 96.9 F L 97.4 F L Pulse Rate 57 L 57 L Respiratory 18 18 Rate Blood Pressure 100/57 L 102/61 O2 Sat by Pulse 100 Oximetry (%) Laboratory Last Values WBC 4.6 K/mm3 (4.0-10.0) 09/27/19 13:15 RBC 3.87 M/mm3 (4.00-5.60) L 09/27/19 13:15 Hgb 11.4 GM/dL (11.7-16.9) L 09/27/19 13:15 Hct 34.2 % (35.4-49) L 09/27/19 13:15 MCV 88.5 fl (80-96) 09/27/19 13:15 MCH 29.4 pg (25.7-33.7) 09/27/19 13:15 MCHC 33.2 g/dl (32.0-35.9) 09/27/19 13:15 RDW 14.4 % (11.9-15.9) 09/27/19 13:15 Plt Count 231 K/MM3 (134-434) 09/27/19 13:15 MPV 8.9 fl (7.5-11.1) D 09/27/19 13:15 Sodium 139 mmol/L (136-145) 09/27/19 13:15 Potassium 4.6 mmol/L (3.5-5.1) 09/27/19 13:15 Chloride 105 mmol/L (98-107) 09/27/19 13:15 Carbon Dioxide 26 mmol/L (21-32) 09/27/19 13:15 Anion Gap 8 MMOL/L (8-16) 09/27/19 13:15 BUN 9.7 mg/dL (7-18) 09/27/19 13:15 Creatinine 0.8 mg/dL (0.55-1.3) 09/27/19 13:15 Est GFR (CKD-EPI)AfAm 143.90 09/27/19 13:15 Est GFR (CKD-EPI)NonAf 124.16 09/27/19 13:15 Random Glucose 101 mg/dL (74-106) 09/27/19 13:15 Calcium 8.9 mg/dL (8.5-10.1) 09/27/19 13:15 Total Bilirubin 0.3 mg/dL (0.2-1) 09/27/19 13:15 AST 21 U/L (15-37) 09/27/19 13:15 ALT 26 U/L (13-61) 09/27/19 13:15 Alkaline Phosphatase 97 U/L (45-117) 09/27/19 13:15 Total Protein 7.7 g/dl (6.4-8.2) 09/27/19 13:15 Albumin 3.8 g/dl (3.4-5.0) 09/27/19 13:15 Syphilis Serology Non-reactive (NONREACTIVE) 09/27/19 13:15 COVID-19 (CYNDI) Not detected (Not Detected) 09/27/19 13:10 Labs noted. Assessment: 10/01/19 11:43 AOX3, in no acute respiratory distress. Full ROM, ambulating in the unit. Mild Withdrawal symptoms. For d/c tomorrow. Plan: continue detox. D/C in AM.
[2019-10-01] MEDS ORDERED: MASKS NR ONE (18:22)
[2019-10-01 21:47] VITALS: TEMP 97.3
[2019-10-01] MEDS: QUEtiapine FUMARATE 100 MG TABLET (FP) PO SCH (21:53)
[2019-10-01] MEDS: THIAMINE HCL 100 MG TABLET (FP) PO SCH (21:53)
[2019-10-01] MEDS: MELATONIN 5 MG TABLETS PO SCH (21:54)
[2019-10-01] MEDS: SUVOREXANT 10 MG TABLET PO PRN (21:56)
[2019-10-02] MEDS ORDERED: METHADONE HCL 5 MG TABLET (FOR DETOX USE ONLY) PO ONE (06:00)
[2019-10-02] MEDS: hydrOXYzine PAMOATE 25 MG CAPSULE (FP) PO SCH (06:20)
[2019-10-02 06:39] VITALS: BP 105/60; PULSE 51
--- NOTE | 2019-10-02 10:15 | DS ---
[facility] Detox Discharge Summary Admission Date: 09/27/19 Discharge Date: 10/02/19 - History Present History: Cocaine Dependence, Opioid Dependence Additional Comments: Pt is medically cleared and discharged today. Pt completed the detox protocol. Pt is encouraged to follow-up with an outpatient CD program and also to follow- up with his pmd which he verbalized understanding. Pt is AOX3, in no acute respiratory distress, Full ROM, and ambulatory. Pertinent Past History: h/o heroin and cocaine use disorder. - Physical Exam Results Vital Signs: Vital Signs Temperature 97.3 F L 10/02/19 06:38 Pulse Rate 51 L 10/02/19 06:38 Respiratory Rate 18 10/02/19 06:38 Blood Pressure 105/60 10/02/19 06:38 O2 Sat by Pulse Oximetry (%) 99 10/02/19 06:38 Vital Signs 10/02/19 06:38 Temperature 97.3 F L Pulse Rate 51 L Respiratory 18 Rate Blood Pressure 105/60 O2 Sat by Pulse 99 Oximetry (%) Laboratory Last Values WBC 4.6 K/mm3 (4.0-10.0) 09/27/19 13:15 RBC 3.87 M/mm3 (4.00-5.60) L 09/27/19 13:15 Hgb 11.4 GM/dL (11.7-16.9) L 09/27/19 13:15 Hct 34.2 % (35.4-49) L 09/27/19 13:15 MCV 88.5 fl (80-96) 09/27/19 13:15 MCH 29.4 pg (25.7-33.7) 09/27/19 13:15 MCHC 33.2 g/dl (32.0-35.9) 09/27/19 13:15 RDW 14.4 % (11.9-15.9) 09/27/19 13:15 Plt Count 231 K/MM3 (134-434) 09/27/19 13:15 MPV 8.9 fl (7.5-11.1) D 09/27/19 13:15 Sodium 139 mmol/L (136-145) 09/27/19 13:15 Potassium 4.6 mmol/L (3.5-5.1) 09/27/19 13:15 Chloride 105 mmol/L (98-107) 09/27/19 13:15 Carbon Dioxide 26 mmol/L (21-32) 09/27/19 13:15 Anion Gap 8 MMOL/L (8-16) 09/27/19 13:15 BUN 9.7 mg/dL (7-18) 09/27/19 13:15 Creatinine 0.8 mg/dL (0.55-1.3) 09/27/19 13:15 Est GFR (CKD-EPI)AfAm 143.90 09/27/19 13:15 Est GFR (CKD-EPI)NonAf 124.16 09/27/19 13:15 Random Glucose 101 mg/dL (74-106) 09/27/19 13:15 Calcium 8.9 mg/dL (8.5-10.1) 09/27/19 13:15 Total Bilirubin 0.3 mg/dL (0.2-1) 09/27/19 13:15 AST 21 U/L (15-37) 09/27/19 13:15 ALT 26 U/L (13-61) 09/27/19 13:15 Alkaline Phosphatase 97 U/L (45-117) 09/27/19 13:15 Total Protein 7.7 g/dl (6.4-8.2) 09/27/19 13:15 Albumin 3.8 g/dl (3.4-5.0) 09/27/19 13:15 Syphilis Serology Non-reactive (NONREACTIVE) 09/27/19 13:15 COVID-19 (CYNDI) Not detected (Not Detected) 09/27/19 13:10 Labs noted. Pertinent Admission Physical Exam Findings: withdrawal symptoms. - Treatment Hospital Course: Detox Protocol Followed, Detoxed Safely, Responded well, Discharged Condition Good - Medication Discharge Medications: Ambulatory Orders Quetiapine Fumarate [Seroquel -] 100 mg PO HS 07/26/19 - Diagnosis (1) Cocaine use disorder Status: Chronic (2) Opioid dependence with withdrawal Status: Acute (3) GERD (gastroesophageal reflux disease) Status: Chronic Qualifiers: Esophagitis presence: esophagitis presence not specified Qualified Code(s): K21.9 - Gastro-esophageal reflux disease without esophagitis (4) Nicotine dependence Status: Chronic Qualifiers: Nicotine product type: cigarettes Substance use status: in withdrawal Qualified Code(s): F17.213 - Nicotine dependence, cigarettes, with withdrawal (5) Opioid use disorder Status: Chronic - AMA Did Patient Leave Against Medical Advice: No
== END 2019-10-02 09:35 | disposition home or self-care (01) | DRG 773 ==
LOC: YASAS 11:44 → Y3N 13:01
PROVIDERS: ADMIT Allergy & Immunology; ATTEND Allergy & Immunology
PROC: HZ2ZZZZ Detoxification Services for Substance Abuse Treatment (ICD-10-PCS; principal; 2019-09-27)
DX: F11.23 Opioid dependence with withdrawal (principal); F14.10 Cocaine abuse, uncomplicated; F17.210 Nicotine dependence, cigarettes, uncomplicated; F19.24 Other psychoactive substance dependence with psychoactive substance-induced mood disorder; F19.282 Other psychoactive substance dependence with psychoactive substance-induced sleep disorder; F31.9 Bipolar disorder, unspecified; F90.9 Attention-deficit hyperactivity disorder, unspecified type; F42.4 Excoriation (skin-picking) disorder; K21.9 Gastro-esophageal reflux disease without esophagitis; L97.911 Non-pressure chronic ulcer of unspecified part of right lower leg limited to breakdown of skin; R76.8 Other specified abnormal immunological findings in serum; R26.89 Other abnormalities of gait and mobility; R63.4 Abnormal weight loss; Z68.1 Body mass index [BMI] 19.9 or less, adult; Z86.69 Personal history of other diseases of the nervous system and sense organs; Z56.0 Unemployment, unspecified; Z59.0 Homelessness
CPT/HCPCS: 36415; 80053; 85027; 86780; 90670; J0735; U0003

== ENCOUNTER 2019-10-28 14:50 | Inpatient (IN) | payer OTHER ==
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
[2019-10-28 15:39] VITALS: BMI 13.6
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
[2019-10-28] MEDS ORDERED: ONDANSETRON *ODT* 4 MG TABLET SL PRN (16:11)
[2019-10-28] MEDS ORDERED: NICOTINE POLACRILEX 2 MG GUM BUC PRN (16:11)
[2019-10-28] MEDS ORDERED: MAG HYDROX/AL HYDROX/SIMETH 30 ML UNIT-DOSE CUP PO PRN (16:11)
[2019-10-28] MEDS ORDERED: MAGNESIUM HYDROX 2400MG/30ML ORAL SUSPENSION 30 ML CUP PO PRN (16:11)
[2019-10-28] MEDS ORDERED: cloNIDine HCL 0.1 MG TABLET PO PRN (16:11)
[2019-10-28] MEDS ORDERED: MAGNESIUM CITRATE 300 ML BOTTLE PO PRN (16:11)
[2019-10-28] MEDS ORDERED: MENTHOL/PHENOL 1 EACH UD MM PRN (16:11)
[2019-10-28] MEDS ORDERED: METHOCARBAMOL 500 MG TABLET PO PRN (16:11)
[2019-10-28] MEDS ORDERED: ACETAMINOPHEN 325 MG TABLET (FP) PO PRN ×2 (16:11)
[2019-10-28] MEDS ORDERED: BISMUTH SUBSALICYLATE 524 MG/30 ML UD PO PRN (16:11)
[2019-10-28] MEDS ORDERED: METHADONE HCL 10 MG TABLET (FOR DETOX USE ONLY) PO ONE (17:30)
[2019-10-28] MEDS: hydrOXYzine PAMOATE 25 MG CAPSULE (FP) PO SCH ×2 (17:31→22:46)
[2019-10-28] MEDS: THIAMINE HCL 100 MG TABLET (FP) PO SCH (22:46)
[2019-10-28] MEDS: MELATONIN 5 MG TABLETS PO SCH (22:46)
[2019-10-29] MEDS: hydrOXYzine PAMOATE 25 MG CAPSULE (FP) PO SCH ×5 (06:31→21:28)
[2019-10-29] MEDS ORDERED: METHADONE HCL 10 MG TABLET (FOR DETOX USE ONLY) ONE (09:21)
[2019-10-29] MEDS ORDERED: METHADONE HCL 5 MG TABLET (FOR DETOX USE ONLY) ONE (09:22)
[2019-10-29] MEDS ORDERED: METHADONE (DETOX) 20 MG, METHADONE (DETOX) 5 MG PO ONE (10:00)
[2019-10-29] MEDS: NICOTINE 7 MG/24 HOURS TOPICAL PATCH TD SCH (10:35)
[2019-10-29] MEDS: PRENATAL VITAMINS W/ FOLIC ACID TABLET (FP) PO SCH (10:35)
[2019-10-29 10:42] LABS: HEMATOCRIT 39.4 % (35.4-49); HEMOGLOBIN 12.8 GM/dL (11.7-16.9); MCH 28.8 pg (25.7-33.7); MCHC 32.5 g/dl (32.0-35.9); MEAN CELL VOLUME 88.5 fl (80-96); MEAN PLT VOLUME 9.2 fl (7.5-11.1); PLATELET COUNT 281 K/MM3 (134-434); RBC 4.45 M/mm3 (4.00-5.60); RDW 13.8 % (11.9-15.9); WHITE BLOOD COUNT 6.4 K/mm3 (4.0-10.0)
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
[2019-10-29 10:58] LABS: ALBUMIN 3.8 g/dl (3.4-5.0); BILIRUBIN,TOTAL 0.5 mg/dL (0.2-1); BLOOD UREA NITROGEN 13.5 mg/dL (7-18); CALCIUM 9.1 mg/dL (8.5-10.1); CREATININE 0.9 mg/dL (0.55-1.3); POTASSIUM 4.2 mmol/L (3.5-5.1); TOT PROT 8.2 g/dl (6.4-8.2)
--- NOTE | 2019-10-29 15:00 | PN ---
S COWS - Scale Resting Pulse: 0= [place] 80 or Below Sweatin= No chills or Flushing Restless Observation: 0= Sits Still Pupil Size: 1= Pupils >than Normal Bone or Joint Aches: 2= Severe Diffuse Aches Runny Nose/ Eye Tearin= Nasal Congestion GI Upset > 30mins: 2= Nausea/Diarrhea Tremor Observation of Outstretched Hands: 2= Slight Tremor Visible Yawning Observation: 1= 1-2x During Session Anxiety or Irritability: 2=Irritable/Anxious Goose Flesh Skin: 0=Smooth Skin COWS Score: 11 S Progress Note (SOAP) Subjective: alert,irritable,anxious,interrupted sleep,tremor,aching pain,nausea Objective: 10/29/19 14:57 Vital Signs Temperature 98.0 F 10/29/19 12:42 Pulse Rate 65 10/29/19 12:42 Respiratory Rate 18 10/29/19 12:42 Blood Pressure 113/68 10/29/19 12:42 O2 Sat by Pulse Oximetry (%) 100 10/29/19 12:42 Laboratory Last Values WBC 6.4 K/mm3 (4.0-10.0) 10/29/19 08:00 RBC 4.45 M/mm3 (4.00-5.60) 10/29/19 08:00 Hgb 12.8 GM/dL (11.7-16.9) 10/29/19 08:00 Hct 39.4 % (35.4-49) D 10/29/19 08:00 MCV 88.5 fl (80-96) 10/29/19 08:00 MCH 28.8 pg (25.7-33.7) 10/29/19 08:00 MCHC 32.5 g/dl (32.0-35.9) 10/29/19 08:00 RDW 13.8 % (11.9-15.9) 10/29/19 08:00 Plt Count 281 K/MM3 (134-434) D 10/29/19 08:00 MPV 9.2 fl (7.5-11.1) 10/29/19 08:00 Sodium 138 mmol/L (136-145) 10/29/19 08:00 Potassium 4.2 mmol/L (3.5-5.1) 10/29/19 08:00 Chloride 105 mmol/L (98-107) 10/29/19 08:00 Carbon Dioxide 26 mmol/L (21-32) 10/29/19 08:00 Anion Gap 7 MMOL/L (8-16) L 10/29/19 08:00 BUN 13.5 mg/dL (7-18) 10/29/19 08:00 Creatinine 0.9 mg/dL (0.55-1.3) 10/29/19 08:00 Est GFR (CKD-EPI)AfAm 137.10 10/29/19 08:00 Est GFR (CKD-EPI)NonAf 118.29 10/29/19 08:00 Random Glucose 145 mg/dL (74-106) H 10/29/19 08:00 Calcium 9.1 mg/dL (8.5-10.1) 10/29/19 08:00 Total Bilirubin 0.5 mg/dL (0.2-1) 10/29/19 08:00 AST 27 U/L (15-37) 10/29/19 08:00 ALT 39 U/L (13-61) 10/29/19 08:00 Alkaline Phosphatase 121 U/L (45-117) H 10/29/19 08:00 Total Protein 8.2 g/dl (6.4-8.2) 10/29/19 08:00 Albumin 3.8 g/dl (3.4-5.0) 10/29/19 08:00 Syphilis Serology Non-reactive (NONREACTIVE) 10/29/19 08:00 COVID-19 (CYNDI) Not detected (Not Detected) 10/28/19 15:45 Assessment: 10/29/19 14:58 withdrawal symptom Plan: continue detox methadone regimen,initial glucose 145,continue detox methadone regimen,add valium 10 mgs po q 4 hrs prn for severe withdrawal for 72 hrs,encourage oral fluid,fasting glucose
[2019-10-29] MEDS: diazePAM 5 MG TABLET PO PRN ×2 (17:25→21:28)
[2019-10-29] MEDS: MELATONIN 5 MG TABLETS PO SCH (21:28)
[2019-10-29] MEDS: QUEtiapine FUMARATE 50 MG TABLET PO SCH (21:28)
[2019-10-29] MEDS: THIAMINE HCL 100 MG TABLET (FP) PO SCH (21:28)
[2019-10-30] MEDS: hydrOXYzine PAMOATE 25 MG CAPSULE (FP) PO SCH ×5 (07:13→21:08)
--- NOTE | 2019-10-30 09:54 | PN ---
BHS COWS - Scale Resting Pulse: 2= [place] 101-120 Sweatin= Chills/Flushing Restless Observation: 1= Difficult to Sit Still Pupil Size: 0= Normal to Room Light Bone or Joint Aches: 2= Severe Diffuse Aches Runny Nose/ Eye Tearin= None GI Upset > 30mins: 0= None Tremor Observation of Outstretched Hands: 0= None Yawning Observation: 1= 1-2x During Session Anxiety or Irritability: 2=Irritable/Anxious Goose Flesh Skin: 0=Smooth Skin COWS Score: 9 BHS Progress Note (SOAP) Subjective: c/o irritability, anxiety, chills, body aches, and interrupted sleep. Objective: 10/30/19 09:53 Vital Signs 10/30/19 10/30/19 06:23 08:30 Temperature 97.3 F L 97.1 F L Pulse Rate 56 L 103 H Respiratory 16 20 Rate Blood Pressure 106/64 121/81 O2 Sat by Pulse 100 Oximetry (%) 10/30/19 09:53 Laboratory Last Values WBC 6.4 K/mm3 (4.0-10.0) 10/29/19 08:00 RBC 4.45 M/mm3 (4.00-5.60) 10/29/19 08:00 Hgb 12.8 GM/dL (11.7-16.9) 10/29/19 08:00 Hct 39.4 % (35.4-49) D 10/29/19 08:00 MCV 88.5 fl (80-96) 10/29/19 08:00 MCH 28.8 pg (25.7-33.7) 10/29/19 08:00 MCHC 32.5 g/dl (32.0-35.9) 10/29/19 08:00 RDW 13.8 % (11.9-15.9) 10/29/19 08:00 Plt Count 281 K/MM3 (134-434) D 10/29/19 08:00 MPV 9.2 fl (7.5-11.1) 10/29/19 08:00 Sodium 138 mmol/L (136-145) 10/29/19 08:00 Potassium 4.2 mmol/L (3.5-5.1) 10/29/19 08:00 Chloride 105 mmol/L (98-107) 10/29/19 08:00 Carbon Dioxide 26 mmol/L (21-32) 10/29/19 08:00 Anion Gap 7 MMOL/L (8-16) L 10/29/19 08:00 BUN 13.5 mg/dL (7-18) 10/29/19 08:00 Creatinine 0.9 mg/dL (0.55-1.3) 10/29/19 08:00 Est GFR (CKD-EPI)AfAm 137.10 10/29/19 08:00 Est GFR (CKD-EPI)NonAf 118.29 10/29/19 08:00 Random Glucose 145 mg/dL (74-106) H 10/29/19 08:00 Fasting Glucose 84 mg/dL (74-106) 10/30/19 07:45 Calcium 9.1 mg/dL (8.5-10.1) 10/29/19 08:00 Total Bilirubin 0.5 mg/dL (0.2-1) 10/29/19 08:00 AST 27 U/L (15-37) 10/29/19 08:00 ALT 39 U/L (13-61) 10/29/19 08:00 Alkaline Phosphatase 121 U/L (45-117) H 10/29/19 08:00 Total Protein 8.2 g/dl (6.4-8.2) 10/29/19 08:00 Albumin 3.8 g/dl (3.4-5.0) 10/29/19 08:00 Syphilis Serology Non-reactive (NONREACTIVE) 10/29/19 08:00 COVID-19 (CYNDI) Not detected (Not Detected) 10/28/19 15:45 Labs noted. Assessment: 10/30/19 09:54 AOX3, in no acute respiratory distress. Full ROM, ambulating in the unit. Withdrawal symptoms. Plan: continue detox.
[2019-10-30] MEDS ORDERED: METHADONE HCL 10 MG TABLET (FOR DETOX USE ONLY) PO ONE (10:00)
[2019-10-30] MEDS: PRENATAL VITAMINS W/ FOLIC ACID TABLET (FP) PO SCH (10:17)
[2019-10-30] MEDS: NICOTINE 7 MG/24 HOURS TOPICAL PATCH TD SCH (10:17)
[2019-10-30] MEDS: diazePAM 5 MG TABLET PO PRN ×3 (10:19→19:39)
[2019-10-30] MEDS: THIAMINE HCL 100 MG TABLET (FP) PO SCH (21:08)
[2019-10-30] MEDS: MELATONIN 5 MG TABLETS PO SCH (21:08)
[2019-10-30] MEDS: QUEtiapine FUMARATE 50 MG TABLET PO SCH (21:08)
[2019-10-31] MEDS: hydrOXYzine PAMOATE 25 MG CAPSULE (FP) PO SCH ×5 (06:27→21:16)
[2019-10-31] MEDS: diazePAM 5 MG TABLET PO PRN ×4 (06:55→19:43)
[2019-10-31] MEDS ORDERED: METHADONE HCL 10 MG TABLET (FOR DETOX USE ONLY) ONE (08:38)
[2019-10-31] MEDS ORDERED: METHADONE HCL 5 MG TABLET (FOR DETOX USE ONLY) ONE (08:39)
[2019-10-31] MEDS ORDERED: METHADONE (DETOX) 10 MG, METHADONE (DETOX) 5 MG PO ONE (10:00)
[2019-10-31] MEDS: NICOTINE 7 MG/24 HOURS TOPICAL PATCH TD SCH (10:19)
[2019-10-31] MEDS: PRENATAL VITAMINS W/ FOLIC ACID TABLET (FP) PO SCH (10:21)
--- NOTE | 2019-10-31 11:17 | PN ---
BHS COWS - Scale Resting Pulse: 1= [place] 81-100 Sweatin= No chills or Flushing Restless Observation: 0= Sits Still Pupil Size: 0= Normal to Room Light Bone or Joint Aches: 1= Mild Discomfort Runny Nose/ Eye Tearin= None GI Upset > 30mins: 1= Stomach Cramp Tremor Observation of Outstretched Hands: 1= Tremor [place], Not Seen Yawning Observation: 1= 1-2x During Session Anxiety or Irritability: 1=Feels Anxious/Irritable Goose Flesh Skin: 0=Smooth Skin COWS Score: 6 BHS Progress Note (SOAP) Subjective: 24 years old male was admitted on 10/28/19 for opiate withdrawal sx management treating with methadone detox regiment mr pedroza states that he is going to have right lower leg surgery alignment correction mr pedroza questions surgeon testing my urine? will they accept my urine positive methadone? mr pedroza requests rewriter to call his surgeon and request answer rewriter encourage mr pedroza to contact with his orthopedic surgeon for direction answer Objective: 10/31/19 11:33 Vital Signs - 24 hr 10/30/19 10/30/19 10/30/19 12:50 16:36 20:33 Temperature 97.1 F L 98.6 F 97.3 F L Pulse Rate 75 65 72 Respiratory 18 18 16 Rate Blood Pressure 113/62 121/67 125/72 O2 Sat by Pulse 99 98 Oximetry (%) 10/31/19 10/31/19 06:11 08:31 Temperature 97.1 F L 97.1 F L Pulse Rate 54 L 86 Respiratory 16 18 Rate Blood Pressure 109/68 128/79 O2 Sat by Pulse 100 Oximetry (%) Laboratory Tests 10/28/19 10/29/19 10/29/19 15:45 08:00 08:00 WBC 6.4 RBC 4.45 Hgb 12.8 Hct 39.4 D MCV 88.5 MCH 28.8 MCHC 32.5 RDW 13.8 Plt Count 281 D MPV 9.2 Sodium Potassium Chloride Carbon Dioxide Anion Gap BUN Creatinine Est GFR (CKD-EPI)AfAm Est GFR (CKD-EPI)NonAf Random Glucose Fasting Glucose Calcium Total Bilirubin AST ALT Alkaline Phosphatase Total Protein Albumin Syphilis Serology Non-reactive COVID-19 (CYNDI) Not detected 10/29/19 10/30/19 08:00 07:45 WBC RBC Hgb Hct MCV MCH MCHC RDW Plt Count MPV Sodium 138 Potassium 4.2 Chloride 105 Carbon Dioxide 26 Anion Gap 7 L BUN 13.5 Creatinine 0.9 Est GFR (CKD-EPI)AfAm 137.10 Est GFR (CKD-EPI)NonAf 118.29 Random Glucose 145 H Fasting Glucose 84 Calcium 9.1 Total Bilirubin 0.5 AST 27 ALT 39 Alkaline Phosphatase 121 H Total Protein 8.2 Albumin 3.8 Syphilis Serology COVID-19 (CYNDI) lab noted Assessment: 10/31/19 11:33 opiate withdrawal Plan: methadone regiment
[2019-10-31] MEDS: IBUPROFEN 400 MG TABLET (FP) PO PRN (19:29)
[2019-10-31] MEDS: QUEtiapine FUMARATE 50 MG TABLET PO SCH (21:16)
[2019-10-31] MEDS: THIAMINE HCL 100 MG TABLET (FP) PO SCH (21:16)
[2019-10-31] MEDS: MELATONIN 5 MG TABLETS PO SCH (21:16)
[2019-11-01] MEDS: hydrOXYzine PAMOATE 25 MG CAPSULE (FP) PO SCH ×5 (08:15→21:19)
[2019-11-01] MEDS: diazePAM 5 MG TABLET PO PRN (08:26)
--- NOTE | 2019-11-01 08:26 | PN ---
Teaching Attending Note Name of Resident: Harpal Burns ATTENDING PHYSICIAN STATEMENT I saw and evaluated the patient. I reviewed the resident's note and discussed the case with the resident. I agree with the resident's findings and plan as documented. SUBJECTIVE: OBJECTIVE: ASSESSMENT AND PLAN: Agree with resident's findings and plan for detox.
--- NOTE | 2019-11-01 09:26 | PN ---
BHS COWS - Scale Resting Pulse: 0= [place] 80 or Below Sweatin= No chills or Flushing Restless Observation: 0= Sits Still Pupil Size: 1= Pupils >than Normal Bone or Joint Aches: 1= Mild Discomfort Runny Nose/ Eye Tearin= Nasal Congestion GI Upset > 30mins: 1= Stomach Cramp Tremor Observation of Outstretched Hands: 1= Tremor [place], Not Seen Yawning Observation: 1= 1-2x During Session Anxiety or Irritability: 1=Feels Anxious/Irritable Goose Flesh Skin: 0=Smooth Skin COWS Score: 7 BHS Progress Note (SOAP) Subjective: alert,irritable,anxious,interrupted sleep,aching pain Objective: 11/01/19 13:58 Vital Signs Temperature 98.9 F 11/01/19 12:40 Pulse Rate 61 11/01/19 12:40 Respiratory Rate 18 11/01/19 12:40 Blood Pressure 127/65 11/01/19 12:40 O2 Sat by Pulse Oximetry (%) 100 11/01/19 12:40 Assessment: 11/01/19 13:59 withdrawal symptom Plan: continue detox,discharge in am
[2019-11-01] MEDS ORDERED: METHADONE HCL 10 MG TABLET (FOR DETOX USE ONLY) PO ONE (10:00)
[2019-11-01] MEDS: NICOTINE 7 MG/24 HOURS TOPICAL PATCH TD SCH (10:21)
[2019-11-01] MEDS: PRENATAL VITAMINS W/ FOLIC ACID TABLET (FP) PO SCH (10:21)
[2019-11-01] MEDS: IBUPROFEN 400 MG TABLET (FP) PO PRN (17:24)
[2019-11-01] MEDS: QUEtiapine FUMARATE 50 MG TABLET PO SCH (21:19)
[2019-11-01] MEDS: THIAMINE HCL 100 MG TABLET (FP) PO SCH (21:19)
[2019-11-01] MEDS: MELATONIN 5 MG TABLETS PO SCH (21:19)
[2019-11-02] MEDS: hydrOXYzine PAMOATE 25 MG CAPSULE (FP) PO SCH ×2 (05:23→10:01)
[2019-11-02] MEDS ORDERED: METHADONE HCL 5 MG TABLET (FOR DETOX USE ONLY) PO ONE (06:00)
[2019-11-02 09:12] VITALS: BP 135/83; PULSE 110; TEMP 96.9
--- NOTE | 2019-11-02 09:36 | DS ---
[facility] Detox Discharge Summary Admission Date: 10/28/19 Discharge Date: 11/02/19 - History Present History: Cocaine Dependence, Opioid Dependence, Sedative Dependence Additional Comments: alert,oriented x 3 ambulation on the unit lung clear on auscultation bilaterally abdomen soft,no distension,no pain detox completed,no withdrawal symptom stable for discharge today follow up with after care program as arrangement [facility] left the unit in stable condition total time spending on discharge 35 minutes Pertinent Past History: hepatitis c history of fracture of right femur with multiple surgery abnormal gait for previous injury and surgery history of adhd insomnia - Physical Exam Results Vital Signs: Vital Signs Temperature 96.9 F L 11/02/19 08:24 Pulse Rate 110 H 11/02/19 08:24 Respiratory Rate 18 11/02/19 08:24 Blood Pressure 135/83 11/02/19 08:24 O2 Sat by Pulse Oximetry (%) 99 11/02/19 06:29 Pertinent Admission Physical Exam Findings: withdrawal signs and symptom Laboratory Last Values WBC 6.4 K/mm3 (4.0-10.0) 10/29/19 08:00 RBC 4.45 M/mm3 (4.00-5.60) 10/29/19 08:00 Hgb 12.8 GM/dL (11.7-16.9) 10/29/19 08:00 Hct 39.4 % (35.4-49) D 10/29/19 08:00 MCV 88.5 fl (80-96) 10/29/19 08:00 MCH 28.8 pg (25.7-33.7) 10/29/19 08:00 MCHC 32.5 g/dl (32.0-35.9) 10/29/19 08:00 RDW 13.8 % (11.9-15.9) 10/29/19 08:00 Plt Count 281 K/MM3 (134-434) D 10/29/19 08:00 MPV 9.2 fl (7.5-11.1) 10/29/19 08:00 Sodium 138 mmol/L (136-145) 10/29/19 08:00 Potassium 4.2 mmol/L (3.5-5.1) 10/29/19 08:00 Chloride 105 mmol/L (98-107) 10/29/19 08:00 Carbon Dioxide 26 mmol/L (21-32) 10/29/19 08:00 Anion Gap 7 MMOL/L (8-16) L 10/29/19 08:00 BUN 13.5 mg/dL (7-18) 10/29/19 08:00 Creatinine 0.9 mg/dL (0.55-1.3) 10/29/19 08:00 Est GFR (CKD-EPI)AfAm 137.10 10/29/19 08:00 Est GFR (CKD-EPI)NonAf 118.29 10/29/19 08:00 Random Glucose 145 mg/dL (74-106) H 10/29/19 08:00 Fasting Glucose 84 mg/dL (74-106) 10/30/19 07:45 Calcium 9.1 mg/dL (8.5-10.1) 10/29/19 08:00 Total Bilirubin 0.5 mg/dL (0.2-1) 10/29/19 08:00 AST 27 U/L (15-37) 10/29/19 08:00 ALT 39 U/L (13-61) 10/29/19 08:00 Alkaline Phosphatase 121 U/L (45-117) H 10/29/19 08:00 Total Protein 8.2 g/dl (6.4-8.2) 10/29/19 08:00 Albumin 3.8 g/dl (3.4-5.0) 10/29/19 08:00 Syphilis Serology Non-reactive (NONREACTIVE) 10/29/19 08:00 COVID-19 (CYNDI) Not detected (Not Detected) 10/28/19 15:45 Vital Signs Temperature 96.9 F L 11/02/19 08:24 Pulse Rate 110 H 11/02/19 08:24 Respiratory Rate 18 11/02/19 08:24 Blood Pressure 135/83 11/02/19 08:24 O2 Sat by Pulse Oximetry (%) 99 11/02/19 06:29 - Treatment Hospital Course: Detox Protocol Followed, Detoxed Safely, Responded well, Discharged Condition Good Patient has Accepted a Rehab Referral to: declined - Medication Discharge Medications: Ambulatory Orders NK [No Known Home Medication] 10/28/19 - Diagnosis (1) Opioid dependence with withdrawal Current Visit: Yes Status: Acute (2) Benzodiazepine dependence Current Visit: Yes Status: Chronic (3) Cocaine use disorder Current Visit: Yes Status: Chronic (4) History of attention deficit hyperactivity disorder (ADHD) Current Visit: Yes Status: Chronic (5) Insomnia Current Visit: Yes Status: Chronic (6) Nicotine dependence Current Visit: Yes Status: Chronic Qualifiers: Nicotine product type: cigarettes Substance use status: in withdrawal Qualified Code(s): F17.213 - Nicotine dependence, cigarettes, with withdrawal (7) Hepatitis C antibody test positive Current Visit: No Status: Chronic (8) Nicotine dependence Current Visit: Yes Status: Acute - AMA Did Patient Leave Against Medical Advice: No
--- NOTE | 2019-11-02 09:36 | PN ---
BHS COWS - Scale Resting Pulse: 2= [place] 101-120 Sweatin= No chills or Flushing Restless Observation: 0= Sits Still Pupil Size: 0= Normal to Room Light Bone or Joint Aches: 0= None Runny Nose/ Eye Tearin= None GI Upset > 30mins: 0= None Tremor Observation of Outstretched Hands: 0= None Yawning Observation: 0= None Anxiety or Irritability: 0= None Goose Flesh Skin: 0=Smooth Skin COWS Score: 2 BHS Progress Note (SOAP) Subjective: alert,no complaint Objective: 11/02/19 10:52 Vital Signs Temperature 96.9 F L 11/02/19 08:24 Pulse Rate 110 H 11/02/19 08:24 Respiratory Rate 18 11/02/19 08:24 Blood Pressure 135/83 11/02/19 08:24 O2 Sat by Pulse Oximetry (%) 99 11/02/19 06:29 Assessment: 11/02/19 10:52 detox completed,no withdrawal symptom Plan: stable for discharge today,follow up with after care program as arrangement
[2019-11-02] MEDS: NICOTINE 7 MG/24 HOURS TOPICAL PATCH TD SCH (10:00)
[2019-11-02] MEDS: PRENATAL VITAMINS W/ FOLIC ACID TABLET (FP) PO SCH (10:01)
== END 2019-11-02 08:59 | disposition home or self-care (01) | DRG 773 ==
LOC: YASAS 14:50 → Y3N 15:42
PROVIDERS: ADMIT Allergy & Immunology; ATTEND Allergy & Immunology
PROC: HZ2ZZZZ Detoxification Services for Substance Abuse Treatment (ICD-10-PCS; principal; 2019-10-28)
DX: F11.23 Opioid dependence with withdrawal (principal); F13.20 Sedative, hypnotic or anxiolytic dependence, uncomplicated; F14.20 Cocaine dependence, uncomplicated; F17.210 Nicotine dependence, cigarettes, uncomplicated; F19.282 Other psychoactive substance dependence with psychoactive substance-induced sleep disorder; F19.280 Other psychoactive substance dependence with psychoactive substance-induced anxiety disorder; F19.24 Other psychoactive substance dependence with psychoactive substance-induced mood disorder; F90.9 Attention-deficit hyperactivity disorder, unspecified type; G47.00 Insomnia, unspecified; K21.9 Gastro-esophageal reflux disease without esophagitis; B18.2 Chronic viral hepatitis C; R26.89 Other abnormalities of gait and mobility; R63.4 Abnormal weight loss; Z68.1 Body mass index [BMI] 19.9 or less, adult; Z91.81 History of falling; Z99.89 Dependence on other enabling machines and devices; Z87.81 Personal history of (healed) traumatic fracture; Z56.0 Unemployment, unspecified; Z59.0 Homelessness
CPT/HCPCS: 36415; 80053; 82947; 85027; 86780; U0003